=== PATIENT | female | born 1990 | race Caucasian/White ===

== ENCOUNTER 2016-10-29 07:22 | Emergency (ER) | payer BC ==
[2016-10-29] MEDS ORDERED: PREDNISONE 20 MG TABLET PO ONE (08:25)
[2016-10-29] MEDS ORDERED: ALBUTEROL SULFATE HFA (90 MCG/PUFF) 8 GM MDI (1 MDI/ER DISP) IH PRN (08:25)
--- NOTE | 2016-10-29 08:30 | ER Document Report ---
ED General - General Chief Complaint: Cough Stated Complaint: CHEST PAIN Mode of Arrival: Ambulatory Information source: Patient Notes: 26-year-old smoker presents with complaints of productive cough shortness breath of 3-4 day duration. Patient has not received influenza vaccine this year. Admits to wheezing TRAVEL OUTSIDE OF THE [place] IN LAST 30 DAYS: No - HPI Onset: Last week Onset/Duration: Persistent Quality of pain: No pain Severity: Mild Associated symptoms: Productive cough, Shortness of breath Exacerbated by: Walking Relieved by: Denies Similar symptoms previously: No Recently seen / treated by doctor: No - Related Data Allergies/Adverse Reactions: No Known Allergies Allergy (Verified 10/29/16 07:27) Past Medical History - Social History Smoking Status: Current Every Day Smoker Cigarette use (# per day): Yes Chew tobacco use (# tins/day): No Smoking Education Provided: Yes - Patient counselled regarding cessation for 4 minutes Frequency of alcohol use: None Drug Abuse: None Family History: Reviewed & Not Pertinent Patient has suicidal ideation: No Patient has homicidal ideation: No Neurological Medical History: Reports: Hx Migraine Renal/ Medical History: Denies: Hx Peritoneal Dialysis Past Surgical History: Reports: Hx Abdominal Surgery - Laparoscopy for an adnexal mass found to be only the fallopian tube - Immunizations Hx Diphtheria, Pertussis, Tetanus Vaccination: Yes Review of Systems - Review of Systems Notes: REVIEW OF SYSTEMS: CONSTITUTIONAL : Denies fever, chills, or sweats. Denies recent illness. EENT: Denies eye, ear, throat, or mouth pain or symptoms. Denies nasal or sinus congestion or discharge. Denies throat, tongue, or mouth swelling or difficulty swallowing. CARDIOVASCULAR: Denies chest pain. Denies palpitations or racing or irregular heart beat. Denies ankle edema. RESPIRATORY: Denies cough, cold, or chest congestion. Denies shortness of breath, difficulty breathing, or wheezing. GASTROINTESTINAL: Denies abdominal pain or distention. Denies nausea, vomiting , or diarrhea. Denies blood in vomitus, stools, or per rectum. Denies black, tarry stools. Denies constipation. GENITOURINARY: Denies difficulty urinating, painful urination, burning, frequency, blood in urine, or discharge. FEMALE GENITOURINARY: Denies vaginal bleeding, heavy or abnormal periods, irregular periods. Denies vaginal discharge or odor. MUSCULOSKELETAL: Denies back or neck pain or stiffness. Denies joint pain or swelling. SKIN: Denies rash, lesions or sores. HEMATOLOGIC : Denies easy bruising or bleeding. LYMPHATIC: Denies swollen, enlarged glands. NEUROLOGICAL: Denies confusion or altered mental status. Denies passing out or loss of consciousness. Denies dizziness or lightheadedness. Denies headache. Denies weakness or paralysis or loss of use of either side. Denies problems with gait or speech. Denies sensory loss, numbness, or tingling. Denies seizures. PSYCHIATRIC: Denies anxiety or stress. Denies depression, suicidal ideation, or homicidal ideation. ALL OTHER SYSTEMS REVIEWED AND NEGATIVE. Dictation was performed using [employer] voice recognition software PHYSICAL EXAMINATION: GENERAL: Well-appearing, well-nourished and in no acute distress. Smells of cigarette smoke HEAD: Atraumatic, normocephalic. EYES: Pupils equal round and reactive to light, extraocular movements intact, conjunctiva are normal. ENT: Nares patent, oropharynx clear without exudates. Moist mucous membranes. NECK: Normal range of motion, supple without lymphadenopathy LUNGS: decreased breath sounds all throughout HEART: Regular rate and rhythm without murmurs ABDOMEN: Soft, nontender, nondistended abdomen. No guarding, no rebound. No masses appreciated. Female : deferred Musculoskeletal: Normal range of motion, no pitting or edema. No cyanosis. NEUROLOGICAL: Cranial nerves grossly intact. Normal speech, normal gait. Normal sensory, motor exams PSYCH: Normal mood, normal affect. SKIN: Warm, Dry, normal turgor, no rashes or lesions noted. Physical Exam - Vital signs Vitals: Temp Pulse Resp BP Pulse Ox 98.0 F 108 H 20 130/93 H 98 10/29/16 07:26 10/29/16 07:26 10/29/16 07:26 10/29/16 07:26 10/29/16 07:26 Course - Re-evaluation Re-evalutation: 10/29/16 08:30 X-ray pending, influenza was negative. Patient will be started on inhaler and steroids 10/29/16 08:53 Influenza and chest x-ray both negative. Patient will be discharged home with supportive treatment times otherwise stable Smoking cessation provided After performing a Medical Screening Examination, I estimate there is LOW risk for ACUTE CORONARY SYNDROME, RESPIRATORY FAILURE, SEPSIS OR MENINGITIS, thus I consider the discharge disposition reasonable. The patient and I have discussed the diagnosis and risks, and we agree with discharging home with close follow- up. We also discussed returning to the Emergency Department immediately if new or worsening symptoms occur. We have discussed the symptoms which are most concerning (e.g., changing or worsening pain, trouble swallowing or breathing, neck stiffness, fever) that necessitate immediate return. - Vital Signs Vital signs: Temp Pulse Resp BP Pulse Ox 98.0 F 108 H 20 130/93 H 98 10/29/16 07:26 10/29/16 07:26 10/29/16 07:26 10/29/16 07:26 10/29/16 07:26 - Diagnostic Test Radiology reviewed: Image reviewed, Reports reviewed Discharge - Discharge Clinical Impression: Encounter for smoking cessation counseling, Bronchitis Condition: Stable Disposition: HOME, SELF-CARE Instructions: Bronchitis With Bronchospasm (Wheezing) ([facility]) Additional Instructions: Follow up with your physician tomorrow for further care or return to the ED IMMEDIATELY if symptoms worsen or new concerns occur Prescriptions: Prednisone [Deltasone 20 mg Tablet] 3 tab PO DAILY 5 Days
[2016-10-29 09:20] VITALS: BP 132/78
== END 2016-10-29 09:16 | disposition home or self-care (01) ==
LOC: ER 07:22
DX: J40 Bronchitis, not specified as acute or chronic (principal); R05 Cough; R07.9 Chest pain, unspecified; R06.02 Shortness of breath; F17.210 Nicotine dependence, cigarettes, uncomplicated
CPT/HCPCS: 99406; 99283; 87804; 71020; J7512; J3490

== ENCOUNTER 2017-03-07 01:07 | Emergency (ER) | payer BC ==
[2017-03-07 01:15] VITALS: BP 128/80
== END 2017-03-07 03:00 | disposition left against medical advice (07) ==
LOC: ER 01:07
DX: Z53.21 Procedure and treatment not carried out due to patient leaving prior to being seen by health care provider (principal)

== ENCOUNTER 2017-11-13 16:25 | Emergency (ER) | payer SELFPAY ==
--- NOTE | 2017-11-13 17:28 | ER Document Report ---
ED General - General Chief Complaint: Skin Problem Stated Complaint: ABSCESS/UNDERNEATH BREASTS Time Seen by Provider: 11/13/17 17:19 Mode of Arrival: Ambulatory Information source: Patient Notes: 27-year-old female presents to ED for complaint of bumps underneath her breast times about 4 months off and on sometimes they get big sometimes a small. She states sometimes a draining dark yellow fluids with an odor. She states she also may be her last menstrual period was October 07-. She states she has a little bit of pelvic pain but nothing really significant but denies any vaginal bleeding or discharge. TRAVEL OUTSIDE OF THE [place] IN LAST 30 DAYS: No - HPI Onset: Other - 4 months Onset/Duration: Intermittent Quality of pain: Sharp Severity: Moderate Pain Level: 3 Associated symptoms: Other - Bumps to both breast, mild pelvic pain, Exacerbated by: Movement Relieved by: Denies Similar symptoms previously: Yes Recently seen / treated by doctor: No - Related Data Allergies/Adverse Reactions: No Known Allergies Allergy (Verified 11/13/17 16:26) Past Medical History - General Information source: Patient - Social History Smoking Status: Current Every Day Smoker Cigarette use (# per day): Yes Chew tobacco use (# tins/day): No Smoking Education Provided: Yes - 4 minutes Frequency of alcohol use: None Drug Abuse: None Occupation: None Lives with: Family Family History: Arthritis, Hyperlipidemia. denies: CAD, COPD, CVA, DM, Hypertension, Malignancy, Thyroid Disfunction Patient has suicidal ideation: No Patient has homicidal ideation: No - Past Medical History Cardiac Medical History: Reports: None Pulmonary Medical History: Reports: None EENT Medical History: Reports: None Neurological Medical History: Reports: Hx Migraine Endocrine Medical History: Reports: None Renal/ Medical History: Reports: Hx Ovarian Cysts Malignancy Medical History: Reports: None GI Medical History: Reports: None Musculoskeltal Medical History: Reports None Skin Medical History: Reports Hx Cellulitis Psychiatric Medical History: Reports: None Traumatic Medical History: Reports: None Infectious Medical History: Reports: None Past Surgical History: Reports: Hx Abdominal Surgery - Laparoscopy for an adnexal mass found to be only the fallopian tube, Hx Gynecologic Surgery - Ovarian cyst removed - Immunizations Immunizations up to date: Yes Hx Diphtheria, Pertussis, Tetanus Vaccination: Yes Review of Systems - Review of Systems Constitutional: No symptoms reported EENT: No symptoms reported Cardiovascular: No symptoms reported Respiratory: No symptoms reported Gastrointestinal: No symptoms reported Genitourinary: No symptoms reported Female Genitourinary: Other - States she is late for her cycle and she had a positive test that she is having a little bit of discomfort Musculoskeletal: No symptoms reported Skin: Other Hematologic/Lymphatic: No symptoms reported Neurological/Psychological: No symptoms reported -: Yes All other systems reviewed and negative Physical Exam - Vital signs Vitals: Temp Pulse Resp BP Pulse Ox 98.9 F 109 H 18 139/91 H 97 11/13/17 16:30 11/13/17 16:30 11/13/17 16:30 11/13/17 16:30 11/13/17 16:30 Interpretation: Normal - General General appearance: Appears well, Alert - HEENT Head: Normocephalic, Atraumatic Eyes: Normal Pupils: PERRL - Respiratory Respiratory status: No respiratory distress Chest status: Nontender Breath sounds: Normal Chest palpation: Normal - Cardiovascular Rhythm: Regular Heart sounds: Normal auscultation Murmur: No - Abdominal Inspection: Normal Distension: No distension Bowel sounds: Normal Tenderness: Nontender. No: Tender Organomegaly: No organomegaly - Back Back: Normal, Nontender - Extremities General upper extremity: Normal inspection, Nontender, Normal color, Normal ROM , Normal temperature General lower extremity: Normal inspection, Nontender, Normal color, Normal ROM , Normal temperature, Normal weight bearing. No: Immanuel's sign - Neurological Neuro grossly intact: Yes Cognition: Normal Orientation: AAOx4 Ceci Coma Scale Eye Opening: Spontaneous Ceci Coma Scale Verbal: Oriented Ceci Coma Scale Motor: Obeys Commands Ceci Coma Scale Total: 15 Speech: Normal Motor strength normal: LUE, RUE, LLE, RLE Sensory: Normal - Psychological Associated symptoms: Normal affect, Normal mood - Skin Skin Temperature: Warm Skin Moisture: Dry Skin Color: Normal Character of irregularity: Maculopapular - Very small no fluctuance underneath bilateral breast Irregularity with: Swelling, Tenderness, Warmth Course - Re-evaluation Re-evalutation: 11/13/17 21:28 Patient here for multiple very small abscesses to the bilateral breast. They look more like acne that has been scratched and inflamed. Patient was started on Keflex for the multiple small abscesses to the breast and for her urinary tract infection. Patient requested and received a test and she urine present test is positive. Patient was instructed to follow-up with OB /[facility]. Patient to follow-up with her primary doctor concerning her breast abscesses. - Vital Signs Vital signs: Temp Pulse Resp BP Pulse Ox 98.7 F 90 18 122/80 97 11/13/17 19:14 11/13/17 19:14 11/13/17 19:14 11/13/17 19:14 11/13/17 19:14 - Laboratory Laboratory results interpreted by me: 11/13/17 11/13/17 17:45 17:45 Urine Blood SMALL H Ur Leukocyte Esterase TRACE H Urine HCG, Qual POSITIVE H Discharge - Discharge Clinical Impression: Breast abscess of female UTI (urinary tract infection) Qualifiers: Urinary tract infection type: site unspecified Hematuria presence: without hematuria Qualified Code(s): N39.0 - Urinary tract infection, site not specified Condition: Stable Disposition: HOME, SELF-CARE Additional Instructions: URINARY TRACT INFECTION: Your evaluation indicates that you have a urinary tract infection. This is due to germs growing in the bladder. This is a common problem. This infection usually responds quickly to antibiotics. Your antibiotic should be taken exactly as prescribed. Drink plenty of fluids -- three to four quarts a day. Occasionally, a bladder anesthetic will be prescribed to help stop the feeling of urgency until the antibiotic has a chance to clear the infection. This may cause your urine to be dark orange. Certain urine infections require a culture. If the doctor obtained a culture, the results will be back in two days. You should call to see if a change in treatment is needed. A repeat urinalysis after you finish treatment is often recommended. The physician will let you know if further testing is required. Call the doctor if you develop fever, chills, flank pain, inability to urinate, or blood in the urine. Abscess You have an abscess (boil). This a pus-forming infection, usually due to staph. Some boils may be left to drain on their own, but most require lancing. From the time the tender lump first appears, it may be three or four days before the abscess is ready to prabhu. Local heat and rest help at this stage of treatment. An antibiotic may prevent spread of the infection. Once the abscess is opened, packing may be placed into it. This is done so pus is not sealed inside by premature closure of the cavity. The packing will be removed at your follow-up visit or you may be advised to remove it yourself at home. Sometimes this packing must be replaced a few times during healing. The wound will heal with surprisingly little scar. Depending on the size and location of an abscess, healing can take one to four weeks. You may shower and wash the area around the incision site two or three times a day. Antibiotics may be prescribed, but are usually not necessary after an abscess has been drained. If you develop fever, chilling, worsening pain, or increasing swelling in the area, call the doctor or return immediately. CEPHALEXIN: The antibiotic you've been prescribed is a member of the cephalosporin class. This type of antibiotic covers a wide variety of infections, including those of the skin, lungs, and urinary tract. It's useful for staph infections. This antibiotic is slightly similar to the penicillin family. In rare cases , a person who is allergic to penicillin will also be allergic to this medication. If you have had a severe allergic reaction to penicillin, and have not taken this antibiotic since that time, notify your doctor. Antibiotics which cover many germs ("broad spectrum" antibiotics) are more likely to cause diarrhea or "yeast" infections. Women prone to vaginal yeast problems may suffer an attack after taking this antibiotic. In infants, oral thrush (white spots "stuck" on the cheek) or yeast diaper rash may result. See your doctor if these problems occur. Call at once if you develop itching, hives , shortness of breath, or lightheadedness. Soap Cleansing Gently wash the wound daily using a mild soap (like Ivory, Phisoderm, Neutrogena). Use warm water, rubbing gently until all debris, ooze, and crusting have been washed from the wound. Allow to dry briefly (about 10 minutes) after cleaning. Repeat this cleansing at least three times a day for the first two days and then once or twice a day. Epsom Salt Soaks Soak the wound area in a container of warm epsom salt water. If you can't get the wound area into a bucket or cast, use a folded towel soaked in the epsom salt solution and apply to the area. Use clean hot tap water (about the temperature of a very warm bath), mixing in about one (1) teaspoon for every pint of water. Two gallon --> 16 teaspoons Epsom Salts One gallon --> 8 teaspoons Epsom Salts Two quarts --> 4 teaspoons Epsom Salts One quart --> 2 teaspoons Epsom Salts Soak the wound for about 20 minutes while gently moving it around in the water. Repeat this four (4) times a day. FOLLOW-UP CARE: If you have been referred to a physician for follow-up care, call the physician s office for an appointment as you were instructed or within the next two days. If you experience worsening or a significant change in your symptoms, notify the physician immediately or return to the Emergency Department at any time for re-evaluation. Prescriptions: Cephalexin Monohydrate [Keflex 500 mg Capsule] 500 mg PO Q6H 14 Days capsule Forms: Elevated Blood Pressure, Return to Work Referrals: [facility] [Provider Group] - Follow up as needed
[2017-11-13 18:12] LABS: APPEARANCE,URINE SLIGHTLY-CLOUDY; BILIRUBIN,URINE NEGATIVE (NEGATIVE); COLOR,URINE YELLOW; GLUCOSE, URINE NEGATIVE (NEGATIVE); KETONES,URINE NEGATIVE (NEGATIVE); LEUKOCYTE ESTERASE,URINE TRACE (NEGATIVE); NITRITE,URINE NEGATIVE (NEGATIVE); PROTEIN,URINE NEGATIVE (NEGATIVE); URINE SPECIFIC GRAVITY 1.024; UROBILINOGEN,URINE NEGATIVE mg/dL (<2.0)
[2017-11-13] MEDS ORDERED: CEPHALEXIN 500 MG CAPSULE PO ONE (19:00)
[2017-11-13 19:16] VITALS: BP 122/80
== END 2017-11-13 19:16 | disposition home or self-care (01) ==
LOC: ER 16:25
DX: O23.40 Unspecified infection of urinary tract in pregnancy, unspecified trimester (principal); O91.119 Abscess of breast associated with pregnancy, unspecified trimester; O26.899 Other specified pregnancy related conditions, unspecified trimester; R10.2 Pelvic and perineal pain; F17.210 Nicotine dependence, cigarettes, uncomplicated
CPT/HCPCS: 81001; 81025; 99283

== ENCOUNTER 2017-11-23 19:55 | Emergency (ER) | payer SELFPAY ==
--- NOTE | 2017-11-23 20:37 | ER Document Report ---
ED Medical Screen (RME) - General Chief Complaint: Vag Bleeding, +preg <12wks Stated Complaint: CRAMPING/VAGINAL BLEEDING Time Seen by Provider: 11/23/17 20:23 Notes: Patient states that she is . Thinks maybe around 6 weeks. No OB care. Having vaginal bleeding and cramping. Also complaining of boils under her breasts. I have greeted and performed a rapid initial assessment of this patient. A comprehensive ED assessment and evaluation of the patient, analysis of test results and completion of the medical decision making process will be conducted by additional ED providers. TRAVEL OUTSIDE OF THE [place] IN LAST 30 DAYS: No - Related Data Allergies/Adverse Reactions: No Known Allergies Allergy (Verified 11/13/17 16:26) Past Medical History - Social History Chew tobacco use (# tins/day): No Frequency of alcohol use: None Drug Abuse: None Neurological Medical History: Reports: Hx Migraine Renal/ Medical History: Reports: Hx Ovarian Cysts. Denies: Hx Peritoneal Dialysis Skin Medical History: Reports Hx Cellulitis Past Surgical History: Reports: Hx Abdominal Surgery - Laparoscopy for an adnexal mass found to be only the fallopian tube, Hx Gynecologic Surgery - Ovarian cyst removed - Immunizations Immunizations up to date: Yes Hx Diphtheria, Pertussis, Tetanus Vaccination: Yes Physical Exam - Vital signs Vitals: Temp Pulse Resp BP Pulse Ox 98.7 F 106 H 19 131/79 H 99 11/23/17 20:26 11/23/17 20:26 11/23/17 20:26 11/23/17 20:26 11/23/17 20:26 Course - Vital Signs Vital signs: Temp Pulse Resp BP Pulse Ox 98.7 F 106 H 19 131/79 H 99 11/23/17 20:26 11/23/17 20:26 11/23/17 20:26 11/23/17 20:26 11/23/17 20:26
[2017-11-23 21:23] LABS: ABSOLUTE BASOPHILS # (AUTO) 0.1 10^3/uL (0.0-0.2); ABSOLUTE EOSINOPHILS # (AUTO) 0.1 10^3/uL (0.0-0.6); ABSOLUTE LYMPHOCYTES (AUTO) 2.7 10^3/uL (0.5-4.7); ABSOLUTE MONOCYTES (AUTO) 0.6 10^3/uL (0.1-1.4); ABSOLUTE NEUT (AUTO) 7.6 10^3/uL (1.7-8.2); BASOPHILS % (AUTO) 0.9 % (0-2); EOSINOPHILS % (AUTO) 1.3 % (0-6); HEMATOCRIT 39.5 % (36.0-47.0); HEMOGLOBIN 13.2 g/dL (12.0-15.5); LYMPHOCYTES % (AUTO) 23.9 % (13-45); MEAN CORPUSCULAR HEMOGLOBIN 28.1 pg (27.0-33.4); MEAN CORPUSCULAR HGB CONC 33.4 g/dL (32.0-36.0); MEAN CORPUSCULAR VOLUME 84 fl (80-97); MONOCYTES % (AUTO) 5.7 % (3-13); PLATELET COUNT 243 10^3/uL (150-450); RED BLOOD COUNT 4.69 10^6/uL (3.72-5.28); RED CELL DISTRIBUTION WIDTH 14.4 % (11.5-14.0); SEGMENTED NEUTROPHILS % (AUTO) 68.2 % (42-78); TOTAL CELLS COUNTED % (AUTO) 100 %; WHITE BLOOD COUNT 11.2 10^3/uL (4.0-10.5)
[2017-11-23 21:40] LABS: ALANINE AMINOTRANSFERASE 39 U/L (9-52); ALBUMIN 4.3 g/dL (3.5-5.0); ALKALINE PHOSPHATASE 77 U/L (38-126); ANION GAP 10 (5-19); ASPARTATE AMINO TRANSFERASE 18 U/L (14-36); BILIRUBIN,DIRECT 0.1 mg/dL (0.0-0.4); BILIRUBIN,TOTAL 0.2 mg/dL (0.2-1.3); BLOOD UREA NITROGEN 9 mg/dL (7-20); CALCIUM 10.2 mg/dL (8.4-10.2); CARBON DIOXIDE 27 mmol/L (22-30); CHLORIDE 102 mmol/L (98-107); GLUCOSE 83 mg/dL (75-110); POTASSIUM 4.1 mmol/L (3.6-5.0); SODIUM 139.2 mmol/L (137-145)
--- NOTE | 2017-11-23 21:40 | ER Document Report ---
ED General - General Chief Complaint: Vag Bleeding, +preg <12wks Stated Complaint: CRAMPING/VAGINAL BLEEDING Time Seen by Provider: 11/23/17 20:23 Mode of Arrival: Ambulatory Information source: Patient Notes: 27-year-old female presents with complaint of vaginal bleeding and lower abdominal pain. Patient states that she took a home test 2 weeks ago that was positive. She states that she has been experiencing vaginal bleeding for 2 days. She states yesterday she experienced heavy bleeding with some clots and today it has lessened. She is also complaining of multiple areas of erythema and fluctuance on her breasts bilaterally. She does have a history of staff and has had multiple breast abscesses in the past. She has not yet obtained care but is taking vitamins. She does have a history of miscarriage in the past. TRAVEL OUTSIDE OF THE [place] IN LAST 30 DAYS: No - HPI Onset: Yesterday Onset/Duration: Gradual Quality of pain: Cramping Severity: Mild Pain Level: 1 Associated symptoms: denies: Productive cough, Fever, Shortness of breath Exacerbated by: Denies Relieved by: Denies Similar symptoms previously: Yes - Previous miscarriage. Recently seen / treated by doctor: No - Related Data Allergies/Adverse Reactions: No Known Allergies Allergy (Verified 11/13/17 16:26) Past Medical History - Social History Smoking Status: Current Every Day Smoker Chew tobacco use (# tins/day): No Frequency of alcohol use: None Drug Abuse: None Family History: Arthritis, Hyperlipidemia. denies: CAD, COPD, CVA, DM, Hypertension, Malignancy, Thyroid Disfunction Patient has suicidal ideation: No Patient has homicidal ideation: No Neurological Medical History: Reports: Hx Migraine Renal/ Medical History: Reports: Hx Ovarian Cysts. Denies: Hx Peritoneal Dialysis Skin Medical History: Reports Hx Cellulitis Past Surgical History: Reports: Hx Abdominal Surgery - Laparoscopy for an adnexal mass found to be only the fallopian tube, Hx Gynecologic Surgery - Ovarian cyst removed - Immunizations Immunizations up to date: Yes Hx Diphtheria, Pertussis, Tetanus Vaccination: Yes Review of Systems - Review of Systems Constitutional: See HPI. denies: Fever, Weakness EENT: No symptoms reported Cardiovascular: No symptoms reported Respiratory: No symptoms reported Gastrointestinal: No symptoms reported Genitourinary: Other - Vaginal bleeding Female Genitourinary: , Vaginal bleeding. denies: Vaginal discharge Musculoskeletal: See HPI Hematologic/Lymphatic: Other - Multiple areas of erythema on her breasts bilaterally. Physical Exam - Vital signs Vitals: Temp Pulse Resp BP Pulse Ox 98.7 F 106 H 19 131/79 H 99 11/23/17 20:26 11/23/17 20:26 11/23/17 20:26 11/23/17 20:26 11/23/17 20:26 Interpretation: Normal, Hypertensive, Tachypneic. No: Febrile - General General appearance: Appears well, Alert In distress: None - HEENT Head: Normocephalic, Atraumatic Eyes: Normal Pupils: PERRL - Respiratory Respiratory status: No respiratory distress Chest status: Nontender Breath sounds: Normal Chest palpation: Normal - Cardiovascular Rhythm: Regular, Tachycardia Heart sounds: Normal auscultation Murmur: No Normal capillary refill: Yes - Genitourinary External exam: Normal. No: Lesions Speculum exam: Vaginal discharge Vaginal bleeding: None Bimanuel exam: Normal - Skin Skin Temperature: Warm Skin Moisture: Dry Skin Color: Normal Skin irregularity: Erythema - Multiple areas of erythema on the breasts bilaterally. No areas of induration or fluctuance. 1 currently draining wound on the right breast. Course - Re-evaluation Re-evalutation: Laboratory 11/23/17 11/23/17 11/23/17 21:10 21:10 21:10 WBC 11.2 H RBC 4.69 Hgb 13.2 Hct 39.5 MCV 84 MCH 28.1 MCHC 33.4 RDW 14.4 H Plt Count 243 Seg Neutrophils % 68.2 Lymphocytes % 23.9 Monocytes % 5.7 Eosinophils % 1.3 Basophils % 0.9 Absolute Neutrophils 7.6 Absolute Lymphocytes 2.7 Absolute Monocytes 0.6 Absolute Eosinophils 0.1 Absolute Basophils 0.1 Sodium 139.2 Potassium 4.1 Chloride 102 Carbon Dioxide 27 Anion Gap 10 BUN 9 Creatinine 0.72 Est GFR ( Amer) > 60 Est GFR (Non-Af Amer) > 60 Glucose 83 Calcium 10.2 Total Bilirubin 0.2 Direct Bilirubin 0.1 Neonat Total Bilirubin Not Reportable Neonat Direct Bilirubin Not Reportable Neonat Indirect Bili Not Reportable AST 18 ALT 39 Alkaline Phosphatase 77 Total Protein 7.0 Albumin 4.3 Beta HCG, Quant 36534.00 H Total Beta HCG POSITIVE Trichomonas (Wet Prep) Vaginal WBC Vaginal RBC Vaginal Yeast Chlamydia DNA (PCR) N.gonorrhoeae DNA (PCR) Blood Type A POSITIVE Rhogam Indicated RHOGAM NOT INDICATED 11/23/17 11/23/17 22:11 22:11 WBC RBC Hgb Hct MCV MCH MCHC RDW Plt Count Seg Neutrophils % Lymphocytes % Monocytes % Eosinophils % Basophils % Absolute Neutrophils Absolute Lymphocytes Absolute Monocytes Absolute Eosinophils Absolute Basophils Sodium Potassium Chloride Carbon Dioxide Anion Gap BUN Creatinine Est GFR ( Amer) Est GFR (Non-Af Amer) Glucose Calcium Total Bilirubin Direct Bilirubin Neonat Total Bilirubin Neonat Direct Bilirubin Neonat Indirect Bili AST ALT Alkaline Phosphatase Total Protein Albumin Beta HCG, Quant Total Beta HCG Trichomonas (Wet Prep) NO TRICHOMONAS SEEN Vaginal WBC 1+ WBCS SEEN Vaginal RBC NO RBCS SEEN Vaginal Yeast NO YEAST SEEN Chlamydia DNA (PCR) NOT DETECTED N.gonorrhoeae DNA (PCR) NOT DETECTED Blood Type Rhogam Indicated Obstetrics Ultrasound 11/23/17 20:36 IMPRESSION: Living intrauterine fetus measures 6w3d with LEONEL of 07/16/18; there is a 1.6 cm perigestational hemorrhage. 11/24/17 23:46 27-year-old female and 6 weeks per LMP and today's ultrasound presents with complaint of abdominal cramping and vaginal bleeding that started 2 days prior to arrival. Upon arrival vitals reviewed. Patient is mildly tachycardic but afebrile. She does not appear toxic or dehydrated. She is in no acute distress. Pelvic exam was performed and showed no vaginal bleeding and a close office. Transvaginal ultrasound showed a intrauterine with a heart rate of 153 in the associated subchorionic hemorrhage. Discussed findings with the patient and possibility of miscarriage. Patient was advised to return in 48 hours for repeat hCG. She is currently taking vitamins. Patient does also have multiple areas of erythema of both breasts with one area on the right breast which is currently open and draining. She does have a history of staph. Patient was given a prescription for Keflex. Indications to return were discussed with the patient which included return of vaginal bleeding, increased abdominal pain, passing of tissue. - Vital Signs Vital signs: Temp Pulse Resp BP Pulse Ox 98.7 F 86 20 117/69 98 11/23/17 23:58 11/23/17 23:58 11/23/17 23:58 11/23/17 23:58 11/23/17 23:58 - Laboratory Result Diagrams: 11/23/17 21:10 11/23/17 21:10 Laboratory results interpreted by me: 11/23/17 11/23/17 21:10 21:10 WBC 11.2 H RDW 14.4 H Beta HCG, Quant 70390.00 H Discharge - Discharge Clinical Impression: Vaginal bleeding during , Breast abscess Qualifiers: Weeks of gestation: less than 8 weeks Qualified Code(s): Z3A.01 - Less than 8 weeks gestation of Condition: Good Disposition: HOME, SELF-CARE Instructions: Abscess ([facility]), Bleeding During Early ([facility]), Cephalexin ([facility]), Vaginal Bleeding ([facility]) Prescriptions: Cephalexin Monohydrate [Keflex 500 mg Capsule] 500 mg PO BID 10 Days #20 capsule Forms: Follow-Up Laboratory Testing Referrals: KAL ANTHONY MD [ACTIVE STAFF] - Follow up in 1 week
[2017-11-23 22:33] LABS: RBCS (WET MOUNT) NO RBCS SEEN; T.VAGINALIS (WET MOUNT) NO TRICHOMONAS SEEN; WBCS (WET MOUNT) 1+ WBCS SEEN; YEAST (WET MOUNT) NO YEAST SEEN
--- NOTE | 2017-11-23 23:15 | RADIOLOGY REPORT (SQ) ---
EXAM DESCRIPTION: U/S OB TRANSVAGINAL W/O DOP CLINICAL HISTORY: 27 years, Female, +hcg, vag bleeding, pelvic cramp COMPARISON: None. TECHNIQUE: Transvaginal sonogram. LIMITATIONS: None. FINDINGS: Living intrauterine fetus measures 6w3d with LEONEL of 07/16/18, based on CRL of 0.6-cm. Subchorionic hemorrhage measures 1.6 x 1.5 x 0.6-cm. 4.2 cm right ovary, 3.7 cm left ovary, likely 2.2 cm left corpus luteum, 2.5 cm cervical length with closed appearance appear otherwise unremarkable. IMPRESSION: Living intrauterine fetus measures 6w3d with LEONEL of 07/16/18; there is a 1.6 cm perigestational hemorrhage.
[2017-11-23 23:58] LABS: CHLAM PCR NOT DETECTED (NOT DETECT); GON PCR NOT DETECTED (NOT DETECT)
[2017-11-24] VITALS: BP 117/69
== END 2017-11-24 00:01 | disposition home or self-care (01) ==
LOC: ER 19:55
DX: O20.8 Other hemorrhage in early pregnancy (principal); O91.111 Abscess of breast associated with pregnancy, first trimester; O26.891 Other specified pregnancy related conditions, first trimester; R10.30 Lower abdominal pain, unspecified; R00.0 Tachycardia, unspecified; O99.331 Smoking (tobacco) complicating pregnancy, first trimester; Z3A.01 Less than 8 weeks gestation of pregnancy; Z20.818 Contact with and (suspected) exposure to other bacterial communicable diseases; Z87.59 Personal history of other complications of pregnancy, childbirth and the puerperium
CPT/HCPCS: 36415; 76817; 80053; 84702; 85025; 86900; 86901; 87210; 87491; 87591; 99284

== ENCOUNTER 2017-11-25 19:50 | Emergency (ER) | payer SELFPAY ==
[2017-11-25 19:54] VITALS: BP 138/86
--- NOTE | 2017-11-25 20:13 | ER Document Report ---
HPI - HPI Pain Level: 0 Notes: Patient is a 27-year-old female who is approximately 6 weeks who presents to the ED to repeat an hCG from her visit 2 days ago. Patient states that she does not have any more cramping or vaginal bleeding and has been feeling well since then. Patient states that she is eating and drinking without difficulties. She is urinating normally and having normal bowel movements. No other concerns or complaints at this time. Denies any headache, fever, URI, sore throat, chest pain, palpitations, syncope, cough, shortness of breath, wheeze, dyspnea, abdominal pain, nausea/vomiting/diarrhea, urinary retention, dysuria, hematuria, vaginal bleeding/odor/discharge, or rash. Patient has an appointment with her PCM on Monday. - ROS Systems Reviewed and Negative: Yes All other systems reviewed and negative - REPRODUCTIVE Reproductive: REPORTS: : Past Medical History - Social History Smoking Status: Current Every Day Smoker Chew tobacco use (# tins/day): No Frequency of alcohol use: None Drug Abuse: None Family History: Arthritis, Hyperlipidemia. denies: CAD, COPD, CVA, DM, Hypertension, Malignancy, Thyroid Disfunction Patient has suicidal ideation: No Patient has homicidal ideation: No Neurological Medical History: Reports: Hx Migraine Renal/ Medical History: Reports: Hx Ovarian Cysts. Denies: Hx Peritoneal Dialysis Skin Medical History: Reports Hx Cellulitis Past Surgical History: Reports: Hx Abdominal Surgery - Laparoscopy for an adnexal mass found to be only the fallopian tube, Hx Gynecologic Surgery - Ovarian cyst removed - Immunizations Immunizations up to date: Yes Hx Diphtheria, Pertussis, Tetanus Vaccination: Yes Vertical Provider Document - CONSTITUTIONAL Agree With Documented VS: Yes Notes: PHYSICAL EXAMINATION: GENERAL: Well-appearing, well-nourished and in no acute distress. LUNGS: Breath sounds clear to auscultation bilaterally and equal. No wheezes rales or rhonchi. HEART: Regular rate and rhythm without murmurs, rubs, gallops. ABDOMEN: Soft, nontender, nondistended abdomen. No guarding, no rebound. No masses appreciated. Normal bowel sounds present. No CVA tenderness bilaterally. : deferred, pt had one performed 2 days ago. PSYCH: Normal mood, normal affect. SKIN: Warm, Dry, normal turgor, no rashes or lesions noted. - INFECTION CONTROL TRAVEL OUTSIDE OF THE [place] IN LAST 30 DAYS: No Course - Re-evaluation Re-evalutation: 11/25/17 21:34 Patient is an afebrile, well-hydrated, 27-year-old female who presents to the ED for recheck of her hCG level. Vitals are acceptable. PE is otherwise unremarkable. Her hCG did increase from 23,300 approximately to 28,750. heart tones were too difficult to obtain at this time, most likely due to early gestation. Pt currently asymptomatic. Advised patient that she needs to follow-up with [facility] at this point and schedule an appointment. Keep appointment with your PCM on Monday for recheck. Low suspicion for any other systemic emergent condition at this time. Return to the ED with any worsening/ concerning symptoms otherwise as reviewed discharge. Patient is in agreement. - Vital Signs Vital signs: Temp Pulse Resp BP Pulse Ox 98.4 F 120 H 20 138/86 H 96 11/25/17 19:53 11/25/17 19:53 11/25/17 19:53 11/25/17 19:53 11/25/17 19:53 Discharge - Discharge Clinical Impression: Follow up Qualifiers: Weeks of gestation: less than 8 weeks Qualified Code(s): Z3A.01 - Less than 8 weeks gestation of Condition: Stable Disposition: HOME, SELF-CARE Additional Instructions: Maintain fluid intake Proper hygenic technique Keep the skin clean Tylenol/ibuprofen as needed F/u with your PCM as scheduled Monday for a recheck Schedule an appointment with OBGYN as well. Return to the ED with any development of TORIBIO/fever, trouble with vision, eye redness, worsening pain, urethral discharge, urinary retention, blood in the urine, flank pain, abdominal pain, n/v, Chest Pain, shortness of breath, joint pains, trouble breathing, or any other worsening/concerning symptoms as needed otherwise. Referrals: [facility] [Provider Group] - Follow up as needed [facility] [Provider Group] - 11/27/17
== END 2017-11-25 21:49 | disposition home or self-care (01) ==
LOC: ER 19:50
DX: Z34.01 Encounter for supervision of normal first pregnancy, first trimester (principal); Z3A.01 Less than 8 weeks gestation of pregnancy
CPT/HCPCS: 36415; 84702; 99281

== ENCOUNTER 2018-02-09 23:01 | Emergency (ER) | payer SELFPAY ==
--- NOTE | 2018-02-10 01:51 | ER Document Report ---
ED General - General Chief Complaint: OB Problem (<20wks) Stated Complaint: VAGINAL PAIN Time Seen by Provider: 02/10/18 01:04 Notes: The patient is a 27-year-old at 18 weeks by ultrasound who presents with concerns that she lost part of her mucous plug shortly prior to arrival. The patient reports a jellylike substance pass from her vagina and it looks very similar to when she passed her mucous plug with her previous . She also noted some mild, intermittent lower abdominal cramping since that time which has now since resolved. Nothing improves or worsens that pain when present. She denies any vaginal bleeding. She continues to feel active movement. No history of similar symptoms during this or any previous . She has not contacted her END WORKER regarding today's concerns. She states that she wanted to be sure that the baby was okay so she came to the emergency department. TRAVEL OUTSIDE OF THE [place] IN LAST 30 DAYS: No - Related Data Allergies/Adverse Reactions: No Known Allergies Allergy (Verified 11/13/17 16:26) Past Medical History - General Information source: Patient - Social History Smoking Status: Current Some Day Smoker Chew tobacco use (# tins/day): No Frequency of alcohol use: None Drug Abuse: None Lives with: Spouse/Significant other Family History: Arthritis, Hyperlipidemia. denies: CAD, COPD, CVA, DM, Hypertension, Malignancy, Thyroid Disfunction Patient has suicidal ideation: No Patient has homicidal ideation: No Neurological Medical History: Reports: Hx Migraine Renal/ Medical History: Reports: Hx Ovarian Cysts. Denies: Hx Peritoneal Dialysis Skin Medical History: Reports Hx Cellulitis Past Surgical History: Reports: Hx Abdominal Surgery - Laparoscopy for an adnexal mass found to be only the fallopian tube, Hx Gynecologic Surgery - Ovarian cyst removed - Immunizations Immunizations up to date: Yes Hx Diphtheria, Pertussis, Tetanus Vaccination: Yes Review of Systems - Review of Systems Notes: Constitutional: Negative for fever. HENT: Negative for sore throat. Eyes: Negative for visual changes. Cardiovascular: Negative for chest pain. Respiratory: Negative for shortness of breath. Gastrointestinal: Positive for abdominal cramping now resolved Genitourinary: Negative for dysuria. Musculoskeletal: Negative for back pain. Skin: Negative for rash. Neurological: Negative for headaches, weakness or numbness. 10 point ROS negative except as marked above and in HPI. Physical Exam - Vital signs Vitals: Temp Pulse Resp BP Pulse Ox 98.4 F 93 18 130/81 H 98 02/09/18 23:40 02/09/18 23:40 02/09/18 23:40 02/09/18 23:40 02/09/18 23:40 Interpretation: Normal Notes: PHYSICAL EXAMINATION: GENERAL: Well-appearing, well-nourished and in no acute distress. HEAD: Atraumatic, normocephalic. EYES: Pupils equal round and reactive to light, extraocular movements intact, sclera anicteric, conjunctiva are normal. ENT: nares patent, oropharynx clear without exudates. Moist mucous membranes. NECK: Normal range of motion, supple without lymphadenopathy LUNGS: Breath sounds clear to auscultation bilaterally and equal. No wheezes rales or rhonchi. HEART: Regular rate and rhythm without murmurs ABDOMEN: Soft, nontender, normoactive bowel sounds. No guarding, no rebound. No masses appreciated. EXTREMITIES: Normal range of motion, no pitting or edema. No cyanosis. NEUROLOGICAL: No focal neurological deficits. Moves all extremities spontaneously and on command. PSYCH: Normal mood, normal affect. SKIN: Warm, Dry, normal turgor, no rashes or lesions noted. Course - Re-evaluation Re-evalutation: 02/10/18 01:49 Patient presents with concerns of loss of part of her mucous plug at 18 weeks gestation. She has no focal abdominal tenderness on examination. No vaginal bleeding or discharge. Bedside transabdominal ultrasound shows a viable intrauterine , active movement, heart rate 140 bpm. Patient has no additional symptoms or concerns. I have encouraged her to follow-up closely with END WORKER. No indication for labs or further imaging at this time point. At this time will discharge with return precautions and follow-up recommendations. Verbal discharge instructions given a the bedside and opportunity for questions given. Patient is in agreement with this plan and has verbalized understanding of return precautions and the need for OB follow-up in the next 24 -72 hours. - Vital Signs Vital signs: Temp Pulse Resp BP Pulse Ox 98.5 F 92 16 118/74 96 02/10/18 02:23 02/10/18 02:23 02/10/18 02:23 02/10/18 02:23 02/10/18 02:23 Discharge - Discharge Clinical Impression: Concern about complication without diagnosis Abdominal pain during Qualifiers: Trimester: second trimester Qualified Code(s): O26.892 - Other specified related conditions, second trimester Condition: Good Disposition: HOME, SELF-CARE Additional Instructions: Your ultrasound today shows a living intrauterine . Please follow closely with your primary care END WORKER. Please return if you develop severe abdominal pain, bleeding that goes through more than 2 pads for more than 2 hours, pass out, or have any other symptoms that are concerning to you. Please follow-up closely with your OBGYN regarding todays visit.
[2018-02-10 02:24] VITALS: BP 118/74
== END 2018-02-10 02:23 | disposition home or self-care (01) ==
LOC: ER 23:01
DX: O26.892 Other specified pregnancy related conditions, second trimester (principal); R10.30 Lower abdominal pain, unspecified; N89.8 Other specified noninflammatory disorders of vagina; O99.332 Smoking (tobacco) complicating pregnancy, second trimester; Z3A.18 18 weeks gestation of pregnancy
CPT/HCPCS: 99283

== ENCOUNTER → 2018-02-13 | Outpatient (CLI) | payer SELFPAY ==
--- NOTE | 2018-02-13 16:41 | RADIOLOGY REPORT (SQ) ---
EXAM DESCRIPTION: U/S OB 14+ TRNABD 1GES W/O DOP COMPLETED DATE/TIME: 02/13/2018 2:30 pm REASON FOR STUDY: ENCTR FOR SUPERVISION OF OTHER NORMAL , 2ND TRIMESTER (Z34.82) Z34.82 EN COUNTER FOR SUPRVSN OF NORMAL , SECOND TRI COMPARISON: 11/23/2017 TECHNIQUE: Static and Dynamic grayscale imaging performed of gravid uterus using transabdominal appr oach. Additional selected color Doppler and spectral images recorded. All stored on PACS. LIMITATIONS: None. FINDINGS: EGA: 19 weeks 3 days LEONEL: 07/07/2018 EFW: 300+/- 44 grams PERCENTILE: Not applicable. Fetus less than or equal to 20 weeks gestation. ANA LAURA: Adequate amount. PLACENTA: Posterior and fundal GRADE: I PRESENTATION: Variable ANATOMY: HEART RATE: 155 beats per minute. FOUR CHAMBER HEART: Visualized. THREE VESSEL CORD: Yes. CORD INSERTION: Visualized. KIDNEYS AND BLADDER: Visualized. Appear normal. STOMACH: Visualized. Appears normal. SPINE: Normal as visualized. BRAIN AND LATERAL VENTRICLES: Visualized. Appear normal. OTHER: No other significant finding. MATERNAL ADNEXA: Maternal ovaries not visualized. CERVICAL LENGTH: 3 cm. Closed. OTHER: No other significant finding. IMPRESSION: LIVING INTRAUTERINE . ESTIMATED GESTATIONAL AGE 19 weeks 3 days NO VISUALIZED ANOMALIES. Trimester of : Second trimester - 13 weeks 1 day to 27 weeks 6 days. TECHNICAL DOCUMENTATION: JOB ID: [id number] [employer]- All Rights Reserved Reading location - IP/workstation name: [email or web address]
== END ==
LOC: RAD 13:13
PROVIDERS: ATTEND Nurse Practitioner Women's Health
DX: Z34.82 Encounter for supervision of other normal pregnancy, second trimester (principal)
CPT/HCPCS: 76805

== ENCOUNTER 2018-04-16 13:41 | Outpatient (CLI) | payer SELFPAY ==
[2018-04-16 14:52] LABS: APPEARANCE,URINE CLOUDY; BILIRUBIN,URINE NEGATIVE (NEGATIVE); COLOR,URINE YELLOW; GLUCOSE, URINE NEGATIVE (NEGATIVE); KETONES,URINE TRACE mg/dL (NEGATIVE); LEUKOCYTE ESTERASE,URINE TRACE (NEGATIVE); NITRITE,URINE NEGATIVE (NEGATIVE); PROTEIN,URINE 30 mg/dL (NEGATIVE); URINE SPECIFIC GRAVITY 1.028
[2018-04-16 18:32] LABS: URINE AMPHETAMINES SCREEN NEGATIVE; URINE BARBITURATES SCREEN NEGATIVE; URINE BENZODIAZEPINES SCREEN NEGATIVE; URINE COCAINE SCREEN NEGATIVE; URINE MARIJUANA (THC) SCREEN NEGATIVE; URINE METHADONE SCREEN NEGATIVE; URINE PHENCYCLIDINE SCREEN NEGATIVE
== END 2018-04-16 15:30 | disposition home or self-care (01) ==
LOC: LC 13:41
PROVIDERS: ATTEND Obstetrics & Gynecology Gynecology
DX: O47.02 False labor before 37 completed weeks of gestation, second trimester (principal); O26.892 Other specified pregnancy related conditions, second trimester; E86.0 Dehydration; M54.9 Dorsalgia, unspecified; Z3A.27 27 weeks gestation of pregnancy
CPT/HCPCS: 80307; 81005

== ENCOUNTER 2018-06-16 23:33 | Emergency (ER) | payer MEDICAID ==
[2018-06-16 23:50] VITALS: BP 125/76
--- NOTE | 2018-06-17 00:20 | ER Document Report ---
ED General - General Chief Complaint: Fall Stated Complaint: FALL Time Seen by Provider: 06/17/18 00:09 Mode of Arrival: Ambulatory Information source: Patient TRAVEL OUTSIDE OF THE [place] IN LAST 30 DAYS: No - HPI Patient complains to provider of: Low back pain after fall, pelvic cramping Onset: This evening Onset/Duration: Intermittent Quality of pain: Achy, Cramping Severity: Moderate Pain Level: 3 Associated symptoms: None Exacerbated by: Movement Relieved by: Denies Similar symptoms previously: No Recently seen / treated by doctor: Yes Notes: Patient is a 27-year-old female who is approximately 36 weeks by dates , presenting to the emergency room after slip and fall on wet floor, causing pain to her tailbone and low back, she is currently having pelvic pain which she describes as "[place]", she denies any dysuria or hematuria, no vaginal bleeding or discharge, no fluid leakage - Related Data Allergies/Adverse Reactions: No Known Allergies Allergy (Verified 06/17/18 00:36) Past Medical History - General Information source: Patient - Social History Smoking Status: Unknown if Ever Smoked Family History: Arthritis, Hyperlipidemia. denies: CAD, COPD, CVA, DM, Hypertension, Malignancy, Thyroid Disfunction Neurological Medical History: Reports: Hx Migraine Renal/ Medical History: Reports: Hx Ovarian Cysts. Denies: Hx Peritoneal Dialysis Skin Medical History: Reports Hx Cellulitis Past Surgical History: Reports: Hx Abdominal Surgery - Laparoscopy for an adnexal mass found to be only the fallopian tube, Hx Gynecologic Surgery - Ovarian cyst removed - Immunizations Immunizations up to date: Yes Hx Diphtheria, Pertussis, Tetanus Vaccination: Yes Review of Systems - Review of Systems Constitutional: No symptoms reported EENT: No symptoms reported Cardiovascular: No symptoms reported Respiratory: No symptoms reported Gastrointestinal: No symptoms reported Genitourinary: No symptoms reported Female Genitourinary: See HPI Musculoskeletal: See HPI Skin: No symptoms reported Hematologic/Lymphatic: No symptoms reported Neurological/Psychological: No symptoms reported -: Yes All other systems reviewed and negative Physical Exam - Vital signs Vitals: Temp Pulse BP Pulse Ox 98.5 F 112 H 125/76 98 06/16/18 23:48 06/16/18 23:48 06/16/18 23:48 06/16/18 23:48 - Notes Notes: - General General appearance: Appears well, Alert In distress: None - HEENT Head: Normocephalic, Atraumatic Eyes: Normal Conjunctiva: Normal Extraocular movements intact: Yes Eyelashes: Normal Pupils: PERRL - Respiratory Respiratory status: No respiratory distress - Cardiovascular Rhythm: Regular - Abdominal Inspection: Gravid abdomen - Back Back: Tenderness to palpate in the lower lumbar paraspinal musculature and over the tailbone, no bony deformity palpated - Extremities General upper extremity: Normal inspection General lower extremity: Normal inspection - Neurological Neuro grossly intact: Yes Orientation: AAOx4 Arnett Coma Scale Eye Opening: Spontaneous Arnett Coma Scale Verbal: Oriented Arnett Coma Scale Motor: Obeys Commands Arnett Coma Scale Total: 15 - Psychological Associated symptoms: Normal affect, Normal mood - Skin Skin Temperature: Warm Skin Moisture: Dry Skin Color: Normal Course - Re-evaluation Re-evalutation: 06/17/18 00:50 Patient was likely coccyx contusion secondary to slip and fall, however with more concerning is she is 36 weeks and having contractions that she describes as "[place]", therefore labor and delivery was contacted and patient will be discharged for a labor check, she was advised to take Tylenol as needed for pain, follow-up with primary care and PRINTING ASSISTANT, return if symptoms worsen, patient acknowledges understanding and agreement with this plan - Vital Signs Vital signs: Temp Pulse Resp BP Pulse Ox 98.5 F 112 H 125/76 98 06/16/18 23:48 06/16/18 23:48 06/16/18 23:48 06/16/18 23:48 Discharge - Discharge Clinical Impression: Pelvic pain Low back pain Qualifiers: Chronicity: acute Back pain laterality: bilateral Sciatica presence: without sciatica Qualified Code(s): M54.5 - Low back pain Condition: Stable Disposition: LABOR CHECK Instructions: Low Back Pain ([facility]), Pelvic Pain in ([facility]) Additional Instructions: Report to labor and delivery for labor check. Return to the emergency room immediately if any of the concerns. Referrals: MADONNA CROWLEY MD [Primary Care Provider] - Follow up as needed
== END 2018-06-17 00:47 | disposition admitted as inpatient to this hospital (09) ==
LOC: ER 23:33
DX: O26.93 Pregnancy related conditions, unspecified, third trimester (principal); M54.5 Low back pain; R10.2 Pelvic and perineal pain; Z3A.36 36 weeks gestation of pregnancy
CPT/HCPCS: 99283

== ENCOUNTER 2018-06-17 00:25 | Outpatient (CLI) | payer MEDICAID ==
[2018-06-17 01:00] LABS: APPEARANCE,URINE CLOUDY; BILIRUBIN,URINE NEGATIVE (NEGATIVE); COLOR,URINE YELLOW; GLUCOSE, URINE 150 mg/dL (NEGATIVE); KETONES,URINE NEGATIVE (NEGATIVE); LEUKOCYTE ESTERASE,URINE NEGATIVE (NEGATIVE); NITRITE,URINE NEGATIVE (NEGATIVE); PROTEIN,URINE 100 mg/dL (NEGATIVE); URINE SPECIFIC GRAVITY 1.036
[2018-06-17] MEDS ORDERED: ACETAMINOPHEN 325 MG TABLET ONE (01:00)
[2018-06-17] MEDS ORDERED: ACETAMINOPHEN 325 MG TABLET PO ONE (01:10)
[2018-06-17 01:11] LABS: URINE AMPHETAMINES SCREEN NEGATIVE; URINE BARBITURATES SCREEN NEGATIVE; URINE BENZODIAZEPINES SCREEN NEGATIVE; URINE COCAINE SCREEN NEGATIVE; URINE MARIJUANA (THC) SCREEN NEGATIVE; URINE METHADONE SCREEN NEGATIVE; URINE PHENCYCLIDINE SCREEN NEGATIVE
--- NOTE | 2018-06-17 01:45 | RADIOLOGY REPORT (SQ) ---
CLINICAL HISTORY: fall - rule out abruption/placental status COMPARISON: None. TECHNIQUE: US LIMITED on 06/17/2018 12:00 AM CDT FINDINGS: Cervix is not clearly seen. There is a single live intrauterine gestation measuring 38 weeks one day by ultrasound. ANA LAURA is 19.3 cm. heart rate is 153. Placenta is fundal and is unremarkable. Biparietal diameter is 9.4 cm corresponding to 38 weeks two days. Head circumference is 33.7 cm corresponding to 38 weeks four days. Femoral circumference is 34.72 cm corresponding to 30 weeks four days. Femur length is 7.2 cm corresponding to 36 weeks six days. Estimated weight is 3423 g. IMPRESSION: Unremarkable appearance of the placenta.
--- NOTE | 2018-06-17 02:25 | Non Stress Test Report ---
Non Stress Test Datetime Report Generated by CPN: 06/17/2018 02:25 DEMOGRAPHIC EGA NST: 36.1 INDICATION Indication for Study: Ordered by Provider Indication for Study (NST) Other: LC URINE RESULTS Urine Protein, NST: Positive Urine Ketones - NST: Negative Urine Glucose - NST: Positive Urine Blood - NST: Negative MONITORING Monitor Explained: Monitor Explained; Test Explained; Patient Verbalized Understanding Time on Monitor: 06/17/2018 00:42 Time off Monitor: 06/17/2018 02:15 NST Duration: 93 NST INTERVENTIONS NST Interventions: PO Hydration Physician Notified NST: Nanda BABY A: [id number] BABY A Movement : Present Contraction Frequency : x1 FHR Baseline : 125 Accelerations : Prolonged Decelerations : None Variability : Moderate 6-25bpm NST Review: Meets Criteria for Reactive NST NST Review and Verified By : Annie Dial RN NST Results: Reactive NST REPORT Report Trigger: Send Report
== END 2018-06-17 02:23 | disposition home or self-care (01) ==
LOC: LC 00:25
PROVIDERS: ATTEND Obstetrics & Gynecology
PROC: 4A1HXCZ Monitoring of Products of Conception, Cardiac Rate, External Approach (ICD-10-PCS; principal; 2018-06-17)
DX: O47.03 False labor before 37 completed weeks of gestation, third trimester (principal); O36.8330 Maternal care for abnormalities of the fetal heart rate or rhythm, third trimester, not applicable or unspecified; O99.283 Endocrine, nutritional and metabolic diseases complicating pregnancy, third trimester; E86.0 Dehydration; Z3A.36 36 weeks gestation of pregnancy
CPT/HCPCS: 59025; 81001; 80307; 76815; J3490

== ENCOUNTER 2018-06-30 17:31 | Emergency (ER) | payer MEDICAID ==
[2018-06-30 17:41] VITALS: BP 130/91
--- NOTE | 2018-06-30 19:33 | ER Document Report ---
ED Wound - General Chief Complaint: Wound Recheck Stated Complaint: WOUND RECHECK Time Seen by Provider: 06/30/18 17:53 Mode of Arrival: Ambulatory Information source: Patient Notes: Patient is a 27-year-old female who presents to the emergency department with request for wound recheck and packing removal. Patient states she has an abscess to her right breast, she states this was incised and drained at another emergency department 2 days ago. She reports that she is continuing to change the dressing 4 times a day however she states there is very minimal drainage coming out at this point in time. She states that she is continuing to take her antibiotics. TRAVEL OUTSIDE OF THE [place] IN LAST 30 DAYS: No - Related Data Allergies/Adverse Reactions: No Known Allergies Allergy (Verified 06/17/18 00:36) Past Medical History - General Information source: Patient - Social History Smoking Status: Never Smoker Chew tobacco use (# tins/day): No Frequency of alcohol use: None Drug Abuse: None Family History: Arthritis, Hyperlipidemia. denies: CAD, COPD, CVA, DM, Hypertension, Malignancy, Thyroid Disfunction Patient has suicidal ideation: No Patient has homicidal ideation: No Neurological Medical History: Reports: Hx Migraine Renal/ Medical History: Reports: Hx Ovarian Cysts. Denies: Hx Peritoneal Dialysis Skin Medical History: Reports Hx Cellulitis Past Surgical History: Reports: Hx Abdominal Surgery - Laparoscopy for an adnexal mass found to be only the fallopian tube, Hx Gynecologic Surgery - Ovarian cyst removed - Immunizations Immunizations up to date: Yes Hx Diphtheria, Pertussis, Tetanus Vaccination: Yes Review of Systems - Review of Systems Skin: See HPI Physical Exam - Vital signs Vitals: Temp Pulse Resp BP Pulse Ox 98.2 F 101 H 18 130/91 H 97 06/30/18 17:39 06/30/18 17:39 06/30/18 17:39 06/30/18 17:39 06/30/18 17:39 - Notes Notes: PHYSICAL EXAMINATION: GENERAL: Well-appearing, well-nourished and in no acute distress. HEAD: Atraumatic, normocephalic. EYES: Pupils equal round extraocular movements intact, conjunctiva are normal. ENT: Nares patent NECK: Normal range of motion LUNGS: No respiratory distress Musculoskeletal: Normal range of motion NEUROLOGICAL: Normal speech, normal gait. PSYCH: Normal mood, normal affect. SKIN: Warm, Dry, normal turgor, no rashes or lesions noted. Healing, draining abscess noted to right breast with packing in place. There is no surrounding erythema. Course - Re-evaluation Re-evalutation: Packing was removed, new dressing applied. Patient instructed to continue taking her antibiotics as prescribed. - Vital Signs Vital signs: Temp Pulse Resp BP Pulse Ox 98.2 F 101 H 18 130/91 H 97 06/30/18 17:39 06/30/18 17:39 06/30/18 17:39 06/30/18 17:39 06/30/18 17:39 Discharge - Discharge Clinical Impression: Encounter for wound re-check Condition: Stable Disposition: HOME, SELF-CARE Additional Instructions: Your abscess appears to be healing well. Since there is not been much drainage , I will not repack it at this time. Please continue to take your antibiotics.
== END 2018-06-30 19:38 | disposition home or self-care (01) ==
LOC: ER 17:31
DX: Z48.01 Encounter for change or removal of surgical wound dressing (principal); N61.1 Abscess of the breast and nipple
CPT/HCPCS: 99282

== ENCOUNTER 2018-07-10 02:19 | Inpatient (IN) | payer MEDICAID ==
[2018-07-10 03:05] LABS: APPEARANCE,URINE SLIGHTLY-CLOUDY; BILIRUBIN,URINE NEGATIVE (NEGATIVE); COLOR,URINE YELLOW; GLUCOSE, URINE 150 mg/dL (NEGATIVE); KETONES,URINE NEGATIVE (NEGATIVE); LEUKOCYTE ESTERASE,URINE TRACE (NEGATIVE); NITRITE,URINE NEGATIVE (NEGATIVE); PROTEIN,URINE NEGATIVE (NEGATIVE); URINE SPECIFIC GRAVITY 1.021; UROBILINOGEN,URINE NEGATIVE mg/dL (<2.0)
[2018-07-10 03:28] LABS: URINE AMPHETAMINES SCREEN NEGATIVE; URINE BARBITURATES SCREEN NEGATIVE; URINE BENZODIAZEPINES SCREEN NEGATIVE; URINE COCAINE SCREEN NEGATIVE; URINE MARIJUANA (THC) SCREEN NEGATIVE; URINE METHADONE SCREEN NEGATIVE; URINE PHENCYCLIDINE SCREEN NEGATIVE
--- NOTE | 2018-07-10 03:43 | Admission Physical ---
Datetime Report Generated by CPN: 07/10/2018 03:43 CURRENT ADMISSION Chief Complaint: Uterine Contractions Indication for Induction: Not Applicable Admit Impression : Term, Intrauterine ; Active Labor Admit Plan: Admit to Unit; Initiate Labor Protocol ALLERGIES Medication Allergies: No Medication Allergies: No Known Allergies (06/17/2018) Latex: No Latex Allergies Food Allergies: N/A Environmental Allergies: N/A OBSTETRICAL HISTORY EDC: 07/13/2018 00:00 : 2 Para: 1 Term: 1 : 0 SAB: 1 IAB: 0 Ectopic: 0 Livin Cesareans: 0 VBACs: 0 Multiple Births: 0 Gestational Diabetes: No Rh Sensitization: No Incompetent Cervix: No FAIZA: No Infertility: No ART Treatment: No Uterine Anomaly: No IUGR: No Hx Previous C/S: No Macrosomia: No Hx Loss/Stillborn: No PIH: No Hx : No Placenta Previa/Abruption: No Depression/PP Depression: No PTL/PROM: No Post Hemorrhage: No Current Procedures: Ultrasound Obstetrical History Comments: G1 - 2011, , Girl G2 - Current with Subchronianic hematoma SEE RECORDS Alcohol: No Marijuana : No Cocaine: No Other Illicit Drugs: Yes Illicit Drug Comments: hx. methamphetamines Cigarettes: Former Smoker. [id number] MEDICAL HISTORY Diabetes: No Blood Transfusion: No Pulmonary Disease (Asthma, TB): No Breast Disease: No Hypertension: No Developer Prover Mechanical Surgery: No Heart Disease: No Hosp/Surgery: No Autoimmune Disorder: No Anesthetic Complications: No Kidney Disease: Yes Abnormal Pap Smear: No Neuro/Epilepsy: No Psychiatric Disorders: No Other Medical Diseases: No Hepatitis/Liver Disease: No Significant Family History: No Varicosities/Phlebitis: No Trauma/Violence : No Thyroid Dysfunction: No Medical History Comments: UTI's INFECTIOUS HISTORY Gonorrhea: No Genital Herpes: No Chlamydia: No Tuberculosis: No Syphilis: No Hepatitis: No HIV/AIDS Exposure: No Rash or Viral Illness: No HPV: No PHYSICAL EXAM General: Normal HEENT: Normal Neurologic: Normal Thyroid: Normal Heart: Normal Lungs: Normal Breast: Deferred Back: Normal Abdomen: Normal Genitourinary Exam: Normal Extremities: Normal DTRs: Normal Pelvic Type: Adequate Vital Signs: Reviewed VAGINAL EXAM Dilatation: 4 Effacement: 50 Station: -1 MEMBRANES Pooling: Negative Membranes: Intact FETUS A EGA: 39.4 Monitoring: External US FHR- Baseline: 150 Variability: Moderate 6-25bpm Accelerations: 15X15 Decelerations: None FHR Category: Category I Presentation: Vertex Admit Comment: Likely early labor, variables noted. Will admit. INFORMED CONSENT Signature: with User ID: [email or web address]
[2018-07-10] MEDS ORDERED: MISOPROSTOL 0.2 MG TABLET ONE (03:44)
[2018-07-10] MEDS ORDERED: OXYTOCIN 10 UNIT/ML VIAL ONE ×2 (03:44→13:10)
[2018-07-10] MEDS ORDERED: OXYTOCIN/NORMAL SALINE 20 UNIT/1,000 ML RTUINJ ONE (03:45)
[2018-07-10] MEDS ORDERED: LIDOCAINE 1% INJ-PF (10 MG/ML) 30 ML SDV ONE (03:45)
[2018-07-10 04:34] LABS: ABSOLUTE BASOPHILS # (AUTO) 0.1 10^3/uL (0.0-0.2); ABSOLUTE EOSINOPHILS # (AUTO) 0.1 10^3/uL (0.0-0.6); ABSOLUTE LYMPHOCYTES (AUTO) 2.9 10^3/uL (0.5-4.7); ABSOLUTE MONOCYTES (AUTO) 0.7 10^3/uL (0.1-1.4); ABSOLUTE NEUT (AUTO) 9.4 10^3/uL (1.7-8.2); BASOPHILS % (AUTO) 0.4 % (0-2); EOSINOPHILS % (AUTO) 0.6 % (0-6); HEMOGLOBIN 11.8 g/dL (12.0-15.5); LYMPHOCYTES % (AUTO) 21.9 % (13-45); MEAN CORPUSCULAR HEMOGLOBIN 27.4 pg (27.0-33.4); MEAN CORPUSCULAR HGB CONC 33.8 g/dL (32.0-36.0); MEAN CORPUSCULAR VOLUME 81 fl (80-97); PLATELET COUNT 206 10^3/uL (150-450); RED BLOOD COUNT 4.32 10^6/uL (3.72-5.28); RED CELL DISTRIBUTION WIDTH 14.8 % (11.5-14.0); SEGMENTED NEUTROPHILS % (AUTO) 72.1 % (42-78); TOTAL CELLS COUNTED % (AUTO) 100 %; WHITE BLOOD COUNT 13.1 10^3/uL (4.0-10.5)
[2018-07-10] MEDS ORDERED: EPHEDRINE SULFATE INJ 50 MG/1 ML AMPULE ONE ×2 (05:42→13:11)
[2018-07-10] MEDS ORDERED: BUPIVACAINE HCL 0.5 % INJ/PF 30 ML SDV ONE ×2 (05:43→13:57)
[2018-07-10] MEDS ORDERED: FENTANYL/BUPIVACAINE/NS/PF 300 MCG/150 ML RTUINJ EPI ONE (05:43)
[2018-07-10] MEDS: RINGERS SOLUTION,LACTATED 1,000 ML IV PRN (07:20)
[2018-07-10] MEDS ORDERED: ACETAMINOPHEN 325 MG TABLET PO ONE (08:37)
[2018-07-10] MEDS ORDERED: ACETAMINOPHEN 325 MG TABLET ONE ×2 (08:40→08:42)
[2018-07-10] MEDS ORDERED: ONDANSETRON HCL INJ/PF 4 MG/2 ML SDV ONE (09:17)
[2018-07-10] MEDS ORDERED: METOCLOPRAMIDE HCL INJ/PF 10 MG/2 ML SDV ONE (09:17)
[2018-07-10] MEDS ORDERED: SUCCINYLCHOLINE CHLORIDE INJ 200 MG/10 ML VIAL ONE (09:17)
[2018-07-10] MEDS ORDERED: OXYTOCIN/NORMAL SALINE 20 UNIT/1,000 ML RTUINJ IV PRN ×2 (10:26→14:29)
[2018-07-10] MEDS ORDERED: LIDOCAINE 2%/EPINEPHRINE INJ 20 ML VIAL ONE (11:32)
[2018-07-10] MEDS ORDERED: SODIUM BICARBONATE 8.4% INJ 50 MEQ/50 ML DISP.SYRIN ONE (11:33)
[2018-07-10] MEDS ORDERED: CITRIC ACID/SODIUM CITRATE ORAL SOLN 15 ML UDCUP ONE (12:50)
[2018-07-10] MEDS ORDERED: CEFAZOLIN 2 GM/D5W RTU 2 GM/50 ML RTUPB IV ONE (12:50)
[2018-07-10] MEDS ORDERED: PROPOFOL INJ 200 MG/20 ML VIAL IV ONE (13:11)
[2018-07-10] MEDS ORDERED: BUPIVACAINE HCL/DEX-WATER/PF 15 MG/2 ML AMPULE ONE (13:11)
[2018-07-10] MEDS ORDERED: FENTANYL CITRATE INJ/PF 100 MCG/2 ML AMPUL ONE ×2 (13:11→16:04)
[2018-07-10] MEDS ORDERED: MIDAZOLAM 2 MG/2 ML INJ ONE (13:11)
[2018-07-10] MEDS ORDERED: KETAMINE HCL INJ 500 MG/10 ML VIAL ONE (13:19)
[2018-07-10] MEDS ORDERED: MORPHINE SULFATE 10 MG/ML INJ ONE ×2 (13:19→15:44)
[2018-07-10] MEDS ORDERED: LIDOCAINE 0.5% INJ-PF (5 MG/ML) 50 ML SDV ONE (13:56)
[2018-07-10] MEDS ORDERED: ACETAMINOPHEN 1,000 MG/100 ML RTUPB IV ONE (13:56)
[2018-07-10] MEDS ORDERED: HYDROMORPHONE HCL INJ/PF 2 MG/ML AMPULE ONE (14:11)
[2018-07-10] MEDS ORDERED: ACETAMINOPHEN 325 MG TABLET PO PRN (14:29)
[2018-07-10] MEDS ORDERED: SIMETHICONE 80 MG TAB.CHEW PO PRN (14:29)
[2018-07-10] MEDS ORDERED: OXYCODONE-ACETAMINOPHEN 5-325 MG TABLET PO PRN (14:29)
[2018-07-10] MEDS ORDERED: RINGERS SOLUTION,LACTATED 1,000 ML IV PRN (14:29)
[2018-07-10] MEDS ORDERED: ACETAMINOPHEN 1,000 MG/100 ML RTUPB IV PRN (14:29)
[2018-07-10] MEDS ORDERED: DIPH/PERTUSS(ACELL)/TETANUS VAC/PF 0.5 ML SYR (>=10YO) IM PRN (14:29)
[2018-07-10] MEDS ORDERED: PROMETHAZINE HCL INJ 25 MG/1 ML VIAL IV PRN (14:29)
[2018-07-10] MEDS ORDERED: MEASLES,MUMPS&RUBELLA VACC/PF 0.5 ML VIAL SUBCUT PRN (14:29)
[2018-07-10] MEDS ORDERED: KETOROLAC TROMETHAMINE INJ/PF 30 MG/1 ML SDV ONE (15:44)
--- NOTE | 2018-07-10 16:26 | Warning Signs in Babies ---
VOD Warning Signs Datetime Report Generated by [facility]: 07/10/2018 16:26 VOD#608 -Warning Signs in Babies: Needs to be viewed. (04/16/2018 13:58:Lupis Parham RN)
[2018-07-10] MEDS: MORPHINE SULFATE 10 MG/ML INJ IV PRN ×2 (16:43→20:51)
--- NOTE | 2018-07-10 16:52 | Delivery Summary ---
Del Sum A-C Datetime Report Generated by CPN: 07/10/2018 16:52 DELIVERY PERSONNEL DELIVERY PERSONNEL: [id number] Delivery Doctor:: Dalila Harkins MD Anesthesiologist:: Mickie Mcrae MD LICENSED PHYSICAL THERAPY ASSISTANT:: Ashanti Jackson CRNA Labor and Delivery Nurse:: Kacy Shen RN Blueprint Maker:: Lupis Parham RN Neonatal Nurse Practitioner:: MARY JO Srinivasan Nursery Nurse:: Td Veras RN Heading And Priming Tool Setter/SERVICE DESK TEAM LEAD: ST Amelia Heading And Priming Tool Setter/SERVICE DESK TEAM LEAD: Yary Martínez PACK WORKER SUPERVISOR MATERNAL INFORMATION Delivery Anesthesia: Epidural; General Medications After Delivery: Pitocin Bolus-Please Comment Meds After Delivery Comment: Pitocin 20 units in 1 L NS bolusing per order Maternal Complications: Other Complication Details: failure to descend LABOR SUMMARY EDC: 07/13/2018 00:00 No. Babies in Womb: 1 Attempted: No Labor Anesthesia: Epidural LABOR INFORMATION Reason for Induction: Not Applicable Onset of Labor: 07/10/2018 06:00 Oxytocin: Augmentation Group B Beta Strep: Negative Antibiotics # of Doses: 1 Antibiotics Time of Last Dose: 1318 Name of Antibiotic Given: Ancef 2 grams Steroids Given: None Reason Steroids Not Administered: Not Applicable MEMBRANES Membranes Rupture Method: Artificial Rupture of Membranes: 07/10/2018 09:11 Length of Rupture (hr): 4.53 Amniotic Fluid Color: Light Meconium Amniotic Fluid Amount: Moderate Amniotic Fluid Odor: Normal STAGES OF LABOR Stage 3 hr: 0 Stage 3 min: 1 Total Time in Labor hr: 7 Total Time in Labor min: 44 VAGINAL DELIVERY Episiotomy: None Laceration #1: None Laceration Extension #1: N/A Laceration Repair: Not Applicable Sponge Count Correct: N/A Sharps Count Correct: N/A CSECTION DELIVERY Primary Indication: Failure of Descent Secondary Indication: Nonreassuring Status CSection Urgency: Non-Scheduled CSection Incidence: Primary Labor: Labor Elective: Nonelective CSection Incision: Lower Uterine Transverse BABY A INFORMATION Infant Delivery Date/Time: 07/10/2018 13:43 Method of Delivery: Born in Route : No : N/A Forceps: N/A Vacuum Extraction: N/A Shoulder Dystocia : No PRESENTATION/POSITION BABY A Presentation: Cephalic Cephalic Presentation: Vertex Breech Presentation: N/A PLACENTA INFORMATION BABY A Placenta Delivery Time : 07/10/2018 13:44 Placenta Method of Delivery: Manual Removal Placenta Status: Delivered SCORES BABY A Heart Rate 1 min: >100 bpm Resp Effort 1 min: Good Cry Reflex Irritability 1 min: Cough or Sneeze or Pulls Away Muscle Tone 1 min: Some Flexion of Extremities Color 1 min: Blue/Pale Resuscitation Effort 1 min: Tactile Stimulation SCORE 1 MIN: 7 Heart Rate 5 min: >100 bpm Resp Effort 5 min: Good Cry Reflex Irritability 5 min: Cough or Sneeze or Pulls Away Muscle Tone 5 min: Active Motion Color 5 min: Body [place], Extremities Blue Resuscitation Effort 5 min: Tactile Stimulation SCORE 5 MIN: 9 INFORMATION BABY A Gestational Age at Delivery: 39.4 Gestational Status: Full Term- 39- 40.6 Weeks Infant Outcome : Liveborn Condition : Stable Sex: Male IDENTIFICATION BABY A Infant Verification Date/Time: 07/10/2018 13:45 ID Band Number: [id number] Mother's Name Verified: Yes RN Verifying Infant: C Caribou RN J Ac RN CORD INFORMATION BABY A No. Cord Vessels: 3 Nuchal Cord : Around Neck x1, Loose Cord Blood Taken: Yes-For Storage (Mom's Blood type +) Suction: None ASSESSMENT BABY A Skin to Skin: No Skin to Skin Time (min): 0 BABY B INFORMATION : N/A
[2018-07-10 16:55] LABS: HEMATOCRIT 29.9 % (36.0-47.0); MEAN CORPUSCULAR HGB CONC 33.5 g/dL (32.0-36.0); MEAN CORPUSCULAR VOLUME 84 fl (80-97); PLATELET COUNT 165 10^3/uL (150-450); RED BLOOD COUNT 3.57 10^6/uL (3.72-5.28); RED CELL DISTRIBUTION WIDTH 14.9 % (11.5-14.0); WHITE BLOOD COUNT 23.7 10^3/uL (4.0-10.5)
[2018-07-10] MEDS: OXYCODONE-ACETAMINOPHEN 5-325 MG TABLET PO PRN (18:22)
[2018-07-10] MEDS: DOCUSATE SODIUM 100 MG CAPSULE PO SCH (18:22)
--- NOTE | 2018-07-10 21:57 | OPERATIVE REPORT E ---
Operative Report NAME: HAMLET MCCABE : 1990 AGE: 27Y DATE OF SURGERY: 07/10/2018 ROOM: 215 PREOPERATIVE DIAGNOSES: 1. INTRAUTERINE AT 39 WEEKS AND 4 DAYS. 2. FAILURE TO DESCEND. 3. NONREASSURING HEART TONES. 4. MALPRESENTATION. POSTOPERATIVE DIAGNOSES: 1. INTRAUTERINE AT 39 WEEKS AND 4 DAYS. 2. FAILURE TO DESCEND. 3. NONREASSURING HEART TONES. 4. MALPRESENTATION. OPERATION: Low-transverse hysterotomy section. SURGEON: EDDIE ALMONTE M.D. ANESTHESIA: Dr. Mcrae with general. FINDINGS: Male cephalic presentation with Apgars of 7 and 9. ESTIMATED BLOOD LOSS: 800 mL. SPECIMENS REMOVED: Placenta. PROCEDURE: The patient was taken to the operating room, prepared and draped in normal sterile fashion in a supine position with a leftward tilt. A transverse skin incision was made with a scalpel and carried through to the underlying layer of fascia with the same scalpel. The fascia was excised to the midline, extended laterally with Justine. The fascia was then dissected from the rectus muscle sharply with Justine and the rectus muscle was divided. The peritoneal cavity was entered bluntly with surgeon finger fracture. The bladder blade was inserted. The hysterotomy was nicked with a scalpel and extended laterally with surgeon finger fracture. The was then lifted from the pelvis and delivered atraumatically. The nose and mouth were suctioned with a suction bulb. The cord was clamped and cut, and the infant was handed off to waiting editorial specialist. The cord blood was collected, the placenta was removed manually. The uterus was exteriorized and cleared of clots and debris. The hysterotomy was closed with 0 Monocryl in a running locked fashion. A second layer of the same suture was used to imbricate to ensure hemostasis. The uterus was returned to the abdomen and the peritoneal cavity was cleared of clots and debris. The rectus muscle and peritoneum were reapproximated with mattress stitch of 2-0 chromic. The fascia was closed with 0 Vicryl, the subcutaneous layer was closed with plain catgut, and the skin was closed with 4-0 Vicryl. The patient was then injected with approximately 30 mL of bupivacaine for subcutaneous anesthesia. The patient tolerated the procedure well. Sponge, lap and needle counts were correct x2. The patient was taken to recovery in stable condition. DICTATING PHYSICIAN: EDDIE ALMONTE M.D. [id number] PHY#: [id number] ID: [id number] JOB#: [id number] ACCT: [id number] cc:EDDIE ALMONTE M.D. >
[2018-07-10] MEDS: KETOROLAC TROMETHAMINE INJ/PF 30 MG/1 ML SDV IV SCH (22:08)
[2018-07-11] MEDS: RINGERS SOLUTION,LACTATED 1,000 ML IV PRN (01:54)
[2018-07-11] MEDS: MORPHINE SULFATE 10 MG/ML INJ IV PRN (01:55)
[2018-07-11 06:36] LABS: HEMATOCRIT 24.3 % (36.0-47.0); HEMOGLOBIN 8.3 g/dL (12.0-15.5); MEAN CORPUSCULAR HEMOGLOBIN 28.1 pg (27.0-33.4); MEAN CORPUSCULAR HGB CONC 34.2 g/dL (32.0-36.0); MEAN CORPUSCULAR VOLUME 82 fl (80-97); PLATELET COUNT 152 10^3/uL (150-450); RED BLOOD COUNT 2.96 10^6/uL (3.72-5.28)
[2018-07-11] MEDS: KETOROLAC TROMETHAMINE INJ/PF 30 MG/1 ML SDV IV SCH (06:42)
[2018-07-11] MEDS: DOCUSATE SODIUM 100 MG CAPSULE PO SCH ×2 (09:37→17:47)
[2018-07-11] MEDS: PRENATAL VITAMIN W DHA CAPSULE PO SCH (09:37)
[2018-07-11] MEDS: OXYCODONE-ACETAMINOPHEN 5-325 MG TABLET PO PRN ×3 (09:38→21:50)
--- NOTE | 2018-07-11 10:47 | PDOC PROGRESS REPORT ---
Subjective-OB Progress Note for:: 07/11/18 - POD #1, for failure to descend. Pt doing well, UOB, no complaints. Hgb 8.3 this morning. A+, rubella immune. breast and bottle feeding Physical Exam (OB) Vital Signs: Temp Pulse Resp BP Pulse Ox 98.2 F 107 H 18 121/67 95 07/11/18 07:23 07/11/18 07:23 07/11/18 07:23 07/11/18 07:23 07/11/18 07:23 Intake & Output 07/10/18 07/11/18 07/12/18 06:59 06:59 06:59 Intake Total 1700 500 Output Total 900 400 Balance 800 100 Weight 110 kg - General General Appearance: Appears well, Alert In distress: None - PIH/Pre-Eclampsia Clonus: Negative Headache: Absent Epigastric Pain: No Visual Changes: No - Dressing Removed: No - opsite Incision: Dressing Closure Type: Sutures - Lochia Lochia Amount: Scant < 10 ml Lochia Color: Rubra/Red - Abdomen Description: Tender, Soft, Round Hernia Present: No Fundal Description: Firm, Midline Fundal Height: u/u - u/2 - Respiratory Respiratory Status: No respiratory distress Breath sounds: Clear - Cardiovascular Rhythm: Regular Heart Sounds: Normal auscultation - Abdominal Inspection: Normal Distension: No distension Tenderness: Nontender - +bowel sounds - Genitourinary Genitourinary Note: voiding - Extremities Upper extremity: Normal inspection Lower extremities: Tender - trace edema - Neurological Cognition: Normal Orientation: AAOx4 - Psychological Associated symptoms: Normal affect, Normal mood - Skin Skin Temperature: Warm Skin Moisture: Dry Objective-Diagnostic Laboratory: 07/11/18 06:10 07/10/18 07/11/18 16:26 06:10 WBC 23.7 H 15.0 H RBC 3.57 L 2.96 L Hgb 10.0 L 8.3 L Hct 29.9 L 24.3 L MCV 84 82 MCH 28.0 28.1 MCHC 33.5 34.2 RDW 14.9 H 15.0 H Plt Count 165 152 Assessment and Plan(PN) - Assessment and Plan (1) CPD (cephalo-pelvic disproportion) Qualifiers: Cephalopelvic disproportion type: due to unspecified factor Qualified Code( s): O33.9 - Maternal care for disproportion, unspecified Is this a current diagnosis for this admission?: Yes (2) Status post primary low transverse section Is this a current diagnosis for this admission?: Yes (3) Anemia, Is this a current diagnosis for this admission?: Yes Plan: start PO iron - Time Spent with Patient Time with patient: Less than 15 minutes Medications reviewed and adjusted accordingly: Yes - Disposition Anticipated Discharge: Home Within: within 48 hours
[2018-07-11] MEDS: FERROUS SULFATE 325 MG TABLET PO SCH (12:47)
[2018-07-11] MEDS ORDERED: IBUPROFEN 800 MG TABLET PO ONE (13:00)
[2018-07-11] MEDS: IBUPROFEN 800 MG TABLET PO SCH (21:10)
[2018-07-12] MEDS: OXYCODONE-ACETAMINOPHEN 5-325 MG TABLET PO PRN ×3 (02:06→13:01)
[2018-07-12] MEDS: IBUPROFEN 800 MG TABLET PO SCH ×2 (03:47→09:55)
--- NOTE | 2018-07-12 08:54 | PDOC PROGRESS REPORT ---
Subjective-OB Progress Note for:: 07/12/18 Subjective: Sitting up in bed, ready to go home, walking without vertigo, pain under control Physical Exam (OB) Vital Signs: Temp Pulse Resp BP Pulse Ox 98.4 F 95 22 H 117/63 92 07/12/18 07:18 07/12/18 07:18 07/12/18 07:18 07/12/18 07:18 07/12/18 07:18 Intake & Output 07/11/18 07/12/18 07/13/18 06:59 06:59 06:59 Intake Total 1700 1150 Output Total 900 650 Balance 800 500 Weight 110 kg - PIH/Pre-Eclampsia Clonus: Negative Headache: Absent Epigastric Pain: No Visual Changes: No - Dressing Removed: No - honeycomb dressing Incision: Dressing Closure Type: Sutures - Lochia Lochia Amount: Small 10-25 ml Lochia Color: Rubra/Red - Abdomen Description: Tender, Soft, Round Hernia Present: No Fundal Description: Firm, Midline Fundal Height: u/u - u/2 Objective-Diagnostic Laboratory: 07/11/18 06:10 Assessment and Plan(PN) - Assessment and Plan (1) Anemia, Is this a current diagnosis for this admission?: Yes (2) CPD (cephalo-pelvic disproportion) Qualifiers: Cephalopelvic disproportion type: due to unspecified factor Qualified Code( s): O33.9 - Maternal care for disproportion, unspecified Is this a current diagnosis for this admission?: Yes (3) Status post primary low transverse section Is this a current diagnosis for this admission?: Yes - Time Spent with Patient Time with patient: Less than 15 minutes Medications reviewed and adjusted accordingly: Yes - Disposition Anticipated Discharge: Home Within: within 24 hours
--- NOTE | 2018-07-12 09:01 | PDOC DISCHARGE SUMMARY ---
Final Diagnosis Discharge Date: 07/12/18 - Final Diagnosis (1) Anemia, Is this a current diagnosis for this admission?: Yes (2) CPD (cephalo-pelvic disproportion) Is this a current diagnosis for this admission?: Yes (3) Status post primary low transverse section Is this a current diagnosis for this admission?: Yes Discharge Data - Discharge Medication Prescriptions: Oxycodone HCl/Acetaminophen [Percocet 5-325 mg Tablet] 1 tab PO Q4HP PRN #20 tablet PRN Reason: Ferrous Sulfate [Feosol 325 mg Tablet] 325 mg PO DAILY #60 tablet Ibuprofen [Motrin 800 mg Tablet] 800 mg PO Q6A #60 tablet Home Medications: No122/Iron/Folic Acid [ Multi Tablet] 1 each PO DAILY 04/16/18 Ferrous Sulfate [Feosol 325 mg Tablet] 325 mg PO DAILY #60 tablet 07/12/18 Ibuprofen [Motrin 800 mg Tablet] 800 mg PO Q6A #60 tablet 07/12/18 Oxycodone HCl/Acetaminophen [Percocet 5-325 mg Tablet] 1 tab PO Q4HP PRN #20 tablet 07/12/18 Reason(s) for Admission: Onset of Labor, Ceasarean Section-Primary - failure to descend, NR strip Procedures: NST, Ultrasound Intrapartum Procedure(s): : Low Cervical, Transverse - Data Baby 1 Male at 1 minute: 7 at 5 minutes: 9 Weight: 3.941 kg Home with Mother: Yes Complications: No - Diagnosis Test Laboratory: Temp Pulse Resp BP Pulse Ox 98.4 F 95 22 H 117/63 92 07/12/18 07:18 07/12/18 07:18 07/12/18 07:18 07/12/18 07:18 07/12/18 07:18 07/10/18 07/10/18 07/10/18 02:31 04:20 16:26 RBC 4.32 3.57 L Hgb 11.8 L 10.0 L Hct 35.0 L 29.9 L Urine Opiates Screen NEGATIVE 07/11/18 06:10 RBC 2.96 L Hgb 8.3 L Hct 24.3 L Urine Opiates Screen - Discharge information/Instructions Discharge Activity: Activity As Tolerated, No Lifting Over 10 Pounds, No Lifting /Push/Pulling, Pelvic Rest Discharge Diet: As Tolerated, Regular Disposition: HOME, SELF-CARE Follow up with: [facility] in: 5, Days
[2018-07-12] MEDS: FERROUS SULFATE 325 MG TABLET PO SCH (09:55)
[2018-07-12] MEDS: DOCUSATE SODIUM 100 MG CAPSULE PO SCH (09:55)
[2018-07-12] MEDS: PRENATAL VITAMIN W DHA CAPSULE PO SCH (09:55)
[2018-07-12 10:49] LABS: ABSOLUTE EOSINOPHILS # (AUTO) 0.1 10^3/uL (0.0-0.6); ABSOLUTE LYMPHOCYTES (AUTO) 2.1 10^3/uL (0.5-4.7); ABSOLUTE MONOCYTES (AUTO) 0.6 10^3/uL (0.1-1.4); ABSOLUTE NEUT (AUTO) 6.8 10^3/uL (1.7-8.2); BASOPHILS % (AUTO) 0.1 % (0-2); EOSINOPHILS % (AUTO) 1.2 % (0-6); HEMATOCRIT 24.1 % (36.0-47.0); HEMOGLOBIN 8.3 g/dL (12.0-15.5); LYMPHOCYTES % (AUTO) 21.5 % (13-45); MEAN CORPUSCULAR HEMOGLOBIN 28.2 pg (27.0-33.4); MEAN CORPUSCULAR HGB CONC 34.5 g/dL (32.0-36.0); MEAN CORPUSCULAR VOLUME 82 fl (80-97); MONOCYTES % (AUTO) 6.1 % (3-13); PLATELET COUNT 181 10^3/uL (150-450); RED BLOOD COUNT 2.96 10^6/uL (3.72-5.28); RED CELL DISTRIBUTION WIDTH 15.4 % (11.5-14.0); SEGMENTED NEUTROPHILS % (AUTO) 71.1 % (42-78); TOTAL CELLS COUNTED % (AUTO) 100 %; WHITE BLOOD COUNT 9.5 10^3/uL (4.0-10.5)
[2018-07-12 12:18] VITALS: BP 132/75
== END 2018-07-12 14:15 | disposition home or self-care (01) | DRG 788 ==
LOC: LC 02:19 → LR 03:46 → 2S 17:05
PROVIDERS: ADMIT Obstetrics & Gynecology; ATTEND Obstetrics & Gynecology
PROC: 10D00Z1 Extraction of Products of Conception, Low, Open Approach (ICD-10-PCS; principal; 2018-07-10)
PROC: 4A1HXCZ Monitoring of Products of Conception, Cardiac Rate, External Approach (ICD-10-PCS; 2018-07-10)
DX: O62.1 Secondary uterine inertia (principal); O33.9 Maternal care for disproportion, unspecified; Z37.0 Single live birth; O90.81 Anemia of the puerperium; D64.9 Anemia, unspecified; O76 Abnormality in fetal heart rate and rhythm complicating labor and delivery; O69.81X0 Labor and delivery complicated by cord around neck, without compression, not applicable or unspecified; Z87.891 Personal history of nicotine dependence; Z3A.39 39 weeks gestation of pregnancy
CPT/HCPCS: 1961; 36415; 80307; 81005; 85025; 85027; 86592; 86850; 86900; 86901; 88307; 94760; 94799; J0131; J0330; J0690; J1170; J1885; J2250; J2270; J2405; J2590; J2704; J2765; J3010; J3490; J7120

== ENCOUNTER 2018-07-31 23:49 | Emergency (ER) | payer MEDICAID ==
[2018-08-01 00:18] VITALS: BP 126/76
--- NOTE | 2018-08-01 00:49 | ER Document Report ---
ED Oral Problem - General Chief Complaint: Toothache Stated Complaint: DENTAL PROBLEM, PAIN IN EYE, EAR AND HEAD Time Seen by Provider: 08/01/18 00:49 Mode of Arrival: Ambulatory Information source: Patient Notes: Patient is a 27-year-old female who presents with dental pain for the past 2 days. Patient reports having a known cavity in her bottom right wisdom tooth, it became acutely worse yesterday. She reports taking 800 mg of ibuprofen without improvement. She denies fevers or chills, no swelling of the face, no recent injury. Of note, patient states regarding pain medications that "they gave me Perc 5s after my but that barely work." TRAVEL OUTSIDE OF THE [place] IN LAST 30 DAYS: No - HPI Patient complains to provider of: Jaw pain, Swelling of face, Toothache Onset: Yesterday Onset: Gradual Quality of pain: Achy, Throbbing Severity: Severe Pain Level: 4 Context: Other - Dental cavity Associated symptoms: Dental decay, Headache, Jaw pain. denies: Cough, Tongue swelling Worsened by: Cold Relieved by: Nothing Similar symptoms previously: No Recently seen / treated by doctor/dentist: No - Related Data Allergies/Adverse Reactions: No Known Allergies Allergy (Verified 06/17/18 00:36) Past Medical History - General Information source: Patient - Social History Smoking Status: Current Every Day Smoker Chew tobacco use (# tins/day): No Frequency of alcohol use: None Drug Abuse: None Lives with: Family Family History: Arthritis, Hyperlipidemia. denies: CAD, COPD, CVA, DM, Hypertension, Malignancy, Thyroid Disfunction - Medical History Medical History: Negative - Past Medical History Cardiac Medical History: Reports: None Pulmonary Medical History: Reports: None EENT Medical History: Reports: None Neurological Medical History: Reports: Hx Migraine Endocrine Medical History: Reports: None Renal/ Medical History: Reports: Hx Ovarian Cysts. Denies: Hx Peritoneal Dialysis Malignancy Medical History: Reports: None GI Medical History: Reports: None Musculoskeletal Medical History: Reports None Skin Medical History: Reports Hx Cellulitis Psychiatric Medical History: Reports: None Traumatic Medical History: Reports: None Infectious Medical History: Reports: None Past Surgical History: Reports: Hx Abdominal Surgery - Laparoscopy for an adnexal mass found to be only the fallopian tube, Hx Gynecologic Surgery - Ovarian cyst removed - Immunizations Immunizations up to date: Yes Hx Diphtheria, Pertussis, Tetanus Vaccination: Yes Review of Systems - Review of Systems -: Yes ROS unobtainable due to patient's medical condition Constitutional: No symptoms reported EENT: Mouth pain, Mouth swelling, Dental problem Cardiovascular: No symptoms reported Respiratory: No symptoms reported Gastrointestinal: No symptoms reported Genitourinary: No symptoms reported Female Genitourinary: No symptoms reported Musculoskeletal: No symptoms reported Skin: No symptoms reported Hematologic/Lymphatic: No symptoms reported Neurological/Psychological: No symptoms reported -: Yes All other systems reviewed and negative Physical Exam - Vital signs Vitals: Temp Pulse Resp BP Pulse Ox 98.4 F 60 16 126/76 H 100 08/01/18 00:17 08/01/18 00:17 08/01/18 00:17 08/01/18 00:17 08/01/18 00:17 Interpretation: Normal - General General appearance: Appears well, Alert In distress: None - HEENT Head: Normocephalic, Atraumatic Eyes: Normal Pupils: PERRL Teeth diagram: 1 - Partial erosion of the anterior surface down to the gumline, no associated gingival swelling or drainage Pharynx: Normal Neck: Normal - Respiratory Respiratory status: No respiratory distress Chest status: Nontender Breath sounds: Normal Chest palpation: Normal - Cardiovascular Rhythm: Regular Heart sounds: Normal auscultation Murmur: No - Abdominal Inspection: Normal Distension: No distension Bowel sounds: Normal Tenderness: Nontender Organomegaly: No organomegaly - Rectal Tenderness: No - Deferred - Genitourinary Notes: Deferred - Back Back: Normal, Nontender - Extremities General upper extremity: Normal inspection, Nontender, Normal color, Normal ROM , Normal temperature General lower extremity: Normal inspection, Nontender, Normal color, Normal ROM , Normal temperature, Normal weight bearing. No: Immanuel's sign - Neurological Neuro grossly intact: Yes Cognition: Normal Orientation: AAOx4 [place] Coma Scale Eye Opening: Spontaneous Ceci Coma Scale Verbal: Oriented Ceci Coma Scale Motor: Obeys Commands [place] Coma Scale Total: 15 Speech: Normal Motor strength normal: LUE, RUE, LLE, RLE Sensory: Normal - Psychological Associated symptoms: Normal affect, Normal mood - Skin Skin Temperature: Warm Skin Moisture: Dry Skin Color: Normal Course - Re-evaluation Re-evalutation: 08/01/18 01:43 Plan is to give the patient oral penicillin with Ultram and discharged home with dental follow-up. Patient is in agreement and understands the plan. - Vital Signs Vital signs: Temp Pulse Resp BP Pulse Ox 98.4 F 60 16 126/76 H 100 08/01/18 00:17 08/01/18 00:17 08/01/18 00:17 08/01/18 00:17 08/01/18 00:17 Discharge - Discharge Clinical Impression: Pain due to dental caries Condition: Good Disposition: HOME, SELF-CARE Instructions: Toothache ([facility]), Penicillin V K ([facility]) Additional Instructions: Please follow-up with your dentist as soon as possible to discuss dental extraction. Return to the emergency department immediately if you experience increased swelling of the face, high fevers, or any other concerning symptom. Prescriptions: Tramadol HCl [Ultram 50 mg Tablet] 50 mg PO Q6HP PRN 7 Days #28 tablet PRN Reason: Penicillin V Potassium [Penicillin Vk 500 mg Tablet] 500 mg PO BID 7 Days #14 tablet Referrals: JESSE MCCABE MD [Primary Care Provider] - Follow up as needed Print Language: Trinidadian
[2018-08-01] MEDS ORDERED: TRAMADOL HCL 50 MG TABLET PO ONE (01:13)
[2018-08-01] MEDS ORDERED: PENICILLIN V POTASSIUM 500 MG TABLET PO ONE (01:13)
== END 2018-08-01 02:17 | disposition home or self-care (01) ==
LOC: ER 23:49
DX: K02.9 Dental caries, unspecified (principal); K03.2 Erosion of teeth; K08.89 Other specified disorders of teeth and supporting structures; F17.200 Nicotine dependence, unspecified, uncomplicated
CPT/HCPCS: 99282; J3490

== ENCOUNTER 2018-08-08 20:30 | Emergency (ER) | payer MEDICAID ==
--- NOTE | 2018-08-08 21:16 | ER Document Report ---
ED Medical Screen (RME) - General Chief Complaint: Vaginal Bleeding Stated Complaint: VAGINAL BLEEDING/POST CSECTION Time Seen by Provider: 08/08/18 21:07 Notes: 28-year-old female, status post on 07/10/2018, chief complaint of vaginal bleeding. She states that she has been bleeding since the or vaginally but yesterday she started bleeding harder, at times she bleeds somewhat she has to change the pad every hour and a half. She states she has felt a little bit lightheaded, denies dizziness or syncope. Seen by NURSE ADVOCATE earlier in the office, prescribed control, not yet started taking them. No current symptoms. States she is already anemic and on iron. TRAVEL OUTSIDE OF THE [place] IN LAST 30 DAYS: No - Related Data Allergies/Adverse Reactions: No Known Allergies Allergy (Verified 06/17/18 00:36) Past Medical History Neurological Medical History: Reports: Hx Migraine Renal/ Medical History: Reports: Hx Ovarian Cysts. Denies: Hx Peritoneal Dialysis Skin Medical History: Reports Hx Cellulitis Past Surgical History: Reports: Hx Abdominal Surgery - Laparoscopy for an adnexal mass found to be only the fallopian tube, Hx Gynecologic Surgery - Ovarian cyst removed - Immunizations Immunizations up to date: Yes Hx Diphtheria, Pertussis, Tetanus Vaccination: Yes Physical Exam - Vital signs Vitals: Temp Pulse Resp BP Pulse Ox 98.8 F 94 16 120/64 98 08/08/18 21:06 08/08/18 21:06 08/08/18 21:06 08/08/18 21:06 08/08/18 21:06 - General General appearance: Appears well In distress: None Course - Vital Signs Vital signs: Temp Pulse Resp BP Pulse Ox 98.8 F 94 16 120/64 98 08/08/18 21:06 08/08/18 21:06 08/08/18 21:06 08/08/18 21:06 08/08/18 21:06
[2018-08-08 23:06] LABS: ABSOLUTE EOSINOPHILS # (AUTO) 0.2 10^3/uL (0.0-0.6); ABSOLUTE LYMPHOCYTES (AUTO) 2.8 10^3/uL (0.5-4.7); ABSOLUTE MONOCYTES (AUTO) 0.4 10^3/uL (0.1-1.4); ABSOLUTE NEUT (AUTO) 4.5 10^3/uL (1.7-8.2); BASOPHILS % (AUTO) 0.2 % (0-2); EOSINOPHILS % (AUTO) 2.5 % (0-6); HEMATOCRIT 31.9 % (36.0-47.0); HEMOGLOBIN 10.5 g/dL (12.0-15.5); LYMPHOCYTES % (AUTO) 35.5 % (13-45); MEAN CORPUSCULAR HEMOGLOBIN 25.9 pg (27.0-33.4); MEAN CORPUSCULAR HGB CONC 32.8 g/dL (32.0-36.0); MEAN CORPUSCULAR VOLUME 79 fl (80-97); PLATELET COUNT 253 10^3/uL (150-450); RED BLOOD COUNT 4.04 10^6/uL (3.72-5.28); RED CELL DISTRIBUTION WIDTH 15.8 % (11.5-14.0); SEGMENTED NEUTROPHILS % (AUTO) 56.8 % (42-78); TOTAL CELLS COUNTED % (AUTO) 100 %; WHITE BLOOD COUNT 7.9 10^3/uL (4.0-10.5)
[2018-08-08 23:17] LABS: APPEARANCE,URINE CLOUDY; BILIRUBIN,URINE NEGATIVE (NEGATIVE); COLOR,URINE YELLOW; GLUCOSE, URINE NEGATIVE (NEGATIVE); KETONES,URINE NEGATIVE (NEGATIVE); LEUKOCYTE ESTERASE,URINE TRACE (NEGATIVE); NITRITE,URINE NEGATIVE (NEGATIVE); PROTEIN,URINE 100 mg/dL (NEGATIVE); URINE SPECIFIC GRAVITY 1.026; UROBILINOGEN,URINE NEGATIVE mg/dL (<2.0)
[2018-08-08 23:19] LABS: ANION GAP 14 (5-19); BLOOD UREA NITROGEN 19 mg/dL (7-20); CALCIUM 9.7 mg/dL (8.4-10.2); CARBON DIOXIDE 25 mmol/L (22-30); CHLORIDE 104 mmol/L (98-107); GLUCOSE 92 mg/dL (75-110); POTASSIUM 3.9 mmol/L (3.6-5.0); SODIUM 142.9 mmol/L (137-145)
--- NOTE | 2018-08-08 23:59 | ER Document Report ---
ED General - General Chief Complaint: Vaginal Bleeding Stated Complaint: VAGINAL BLEEDING/POST CSECTION Time Seen by Provider: 08/08/18 21:07 Notes: Patient is a 28-year-old female presents with complaint of vaginal bleeding. Patient had a on July 10. Since then she said consistent vaginal bleeding. She says that times is worse than others. She [facility] They prescribed her control pill. She has not yet started taking it. She says she has some intermittent crampy abdominal pain. No fevers. No vomiting. No diarrhea. Tonight when she got home she had a sensation of a gush from her vaginal area. She then sat on toilet and some blood came to the ER for reevaluation. She says her hemoglobin at the OB office was 9.7. TRAVEL OUTSIDE OF THE [place] IN LAST 30 DAYS: No - Related Data Allergies/Adverse Reactions: No Known Allergies Allergy (Verified 06/17/18 00:36) Past Medical History - Social History Smoking Status: Current Every Day Smoker Frequency of alcohol use: None Drug Abuse: None Family History: Arthritis, Hyperlipidemia. denies: CAD, COPD, CVA, DM, Hypertension, Malignancy, Thyroid Disfunction Patient has suicidal ideation: No Patient has homicidal ideation: No Neurological Medical History: Reports: Hx Migraine Renal/ Medical History: Reports: Hx Ovarian Cysts. Denies: Hx Peritoneal Dialysis Skin Medical History: Reports Hx Cellulitis Past Surgical History: Reports: Hx Abdominal Surgery - Laparoscopy for an adnexal mass found to be only the fallopian tube, Hx Section, Hx Gynecologic Surgery - Ovarian cyst removed - Immunizations Immunizations up to date: Yes Hx Diphtheria, Pertussis, Tetanus Vaccination: Yes Review of Systems - Review of Systems Notes: My Normal Review Basic REVIEW OF SYSTEMS: CONSTITUTIONAL : Denies fever, chills, or sweats. Denies recent illness. RESPIRATORY: Denies cough, cold, or chest congestion. Denies shortness of breath, difficulty breathing, or wheezing. GASTROINTESTINAL: Denies abdominal pain. Denies nausea, vomiting, or diarrhea. GENITOURINARY: Denies difficulty urinating, painful urination, burning, frequency, or blood in urine. FEMALE GENITOURINARY: Vaginal bleeding NEUROLOGICAL: Denies altered mental status or loss of consciousness. ALL OTHER SYSTEMS REVIEWED AND NEGATIVE. Physical Exam - Vital signs Vitals: Temp Pulse Resp BP Pulse Ox 98.8 F 94 16 120/64 98 08/08/18 21:06 08/08/18 21:06 08/08/18 21:06 08/08/18 21:06 08/08/18 21:06 - Notes Notes: General Appearance: Well nourished, alert, cooperative, no acute distress, no obvious discomfort. Vitals: reviewed, See vital signs table. Lungs: No wheezing, No rales, No rhonci, No accessory muscle use, good air exchange bilaterally. Heart: Normal rate, Regular rythm, No murmur, no rub Abdomen: Normal BS, soft, No rigidity, mild suprapubic abdominal tenderness to palpation. scar appears to be healing appropriately. No surrounding redness or erythema around incision site., No guarding, no rebound, no abdominal masses, no organomegaly Pelvic exam: Pelvic exam performed with female nurse, Yuni, at bedside. Pelvic exam shows some blood in the vaginal vault. No clots. Cervical os did not have any clots in it. She does have a slow trickle of blood coming from cervical loss but otherwise no other acute concerning findings. Extremities: no edema. Skin: warm, dry, appropriate color, no rash Neuro: speech clear, oriented x 3, normal affect, responds appropriately to questions. Course - Re-evaluation Re-evalutation: 08/09/18 06:13 On exam patient is well-appearing. Her hemoglobin is actually increasing. She does have some vaginal bleeding but she does not have an active large heavy hemorrhage at this time. She was prescribed control which I encouraged her to take as this would likely help with her bleeding. I encouraged her follow-up with her RESIDENTIAL ROOFER HELPER doctor as scheduled. I encouraged her return to ER if she has recurrent heavy bleeding, dizziness, lightheadedness, or if she feels unwell. I do not suspect uterine rupture as she is a month past C- section and her abdomen is soft and very minimally tender to palpation. She has no peritoneal signs. Dictation of this chart was performed using voice recognition software; therefore, there may be some unintended grammatical errors. - Vital Signs Vital signs: Temp Pulse Resp BP Pulse Ox 98.2 F 87 16 116/70 98 08/09/18 01:05 08/09/18 01:05 08/09/18 01:05 08/09/18 01:05 08/09/18 01:05 - Laboratory Result Diagrams: 08/08/18 22:30 08/08/18 22:30 Laboratory results interpreted by me: 08/08/18 08/08/18 22:15 22:30 Hgb 10.5 L Hct 31.9 L MCV 79 L MCH 25.9 L RDW 15.8 H Urine Protein 100 H Urine Blood LARGE H Ur Leukocyte Esterase TRACE H Discharge - Discharge Clinical Impression: Vaginal bleeding Condition: Good Disposition: HOME, SELF-CARE Additional Instructions: Please start the control as instructed by your RESIDENTIAL ROOFER HELPER physician. Please return to the ER immediately if you develop dizziness, shortness of breath, worsening bleeding, or have any further concerns. Forms: Parent Work Note
[2018-08-09 01:06] VITALS: BP 116/70
== END 2018-08-09 01:17 | disposition home or self-care (01) ==
LOC: ER 20:30
DX: N93.9 Abnormal uterine and vaginal bleeding, unspecified (principal); F17.200 Nicotine dependence, unspecified, uncomplicated
CPT/HCPCS: 36415; 80048; 81001; 85025; 86850; 86900; 86901; 99283

== ENCOUNTER 2018-08-13 04:41 | Emergency (ER) | payer MEDICAID ==
[2018-08-13 04:46] VITALS: BP 120/66
--- NOTE | 2018-08-13 05:10 | ER Document Report ---
ED General - General Chief Complaint: Vaginal Bleeding Stated Complaint: VAGINAL BLEEDING Time Seen by Provider: 08/13/18 04:58 Notes: Patient is a 28-year-old female who presents to the emergency department with a chief complaint of vaginal bleeding. She states that she is constantly bleeding and today she passed a baseball sized. She does have associated cramping. Denies nausea, vomiting, and dysuria. She was seen in the emergency department 5 days ago. She was told to take her control, but she has not taken her medication. She had her baby on July 10. Her baby was delivered via C- section. She is not breast-feeding. She has not followed up with her MOVIE STUNT PERFORMER. TRAVEL OUTSIDE OF THE [place] IN LAST 30 DAYS: No - Related Data Allergies/Adverse Reactions: No Known Allergies Allergy (Verified 06/17/18 00:36) Past Medical History - Social History Smoking Status: Current Every Day Smoker Frequency of alcohol use: None Drug Abuse: None Lives with: Family, Spouse/Significant other Family History: Arthritis, Hyperlipidemia. denies: CAD, COPD, CVA, DM, Hypertension, Malignancy, Thyroid Disfunction Neurological Medical History: Reports: Hx Migraine Renal/ Medical History: Reports: Hx Ovarian Cysts. Denies: Hx Peritoneal Dialysis Skin Medical History: Reports Hx Cellulitis Past Surgical History: Reports: Hx Abdominal Surgery - Laparoscopy for an adnexal mass found to be only the fallopian tube, Hx Section, Hx Gynecologic Surgery - Ovarian cyst removed - Immunizations Immunizations up to date: Yes Hx Diphtheria, Pertussis, Tetanus Vaccination: Yes Review of Systems - Review of Systems Notes: REVIEW OF SYSTEMS: CONSTITUTIONAL : Denies recent illness. Denies recent unintentional weight loss. Denies fever, chills, or sweats. EENT: Denies eye, ear, throat, or mouth pain, discharge, or symptoms. Denies nasal or sinus congestion. CARDIOVASCULAR: Denies chest pain. RESPIRATORY: Denies shortness of breath, cough, congestion, difficulty breathing, or wheezing. GASTROINTESTINAL: See HPI GENITOURINARY: Denies difficulty urinating, burning, blood in urine, urgency or frequency. FEMALE GENITOURINARY: See HPI MUSCULOSKELETAL: Denies neck and back pain. Denies joint pain or swelling. SKIN: Denies rash, itchiness, or lesions HEMATOLOGIC : Denies easy bruising or bleeding. LYMPHATIC: Denies swollen, painful, enlarged glands. NEUROLOGICAL: Denies no numbness or tingling denies weakness. Denies headache. Denies altered mental status. Denies alteration in speech. PSYCHIATRIC: Denies stress, anxiety, alteration in sleep patterns, or depression. All other systems reviewed and negative. Physical Exam - Vital signs Vitals: Temp Pulse Resp BP Pulse Ox 97.7 F 103 H 14 120/66 97 08/13/18 04:42 08/13/18 04:42 08/13/18 04:42 08/13/18 04:42 08/13/18 04:42 - Notes Notes: PHYSICAL EXAMINATION: GENERAL: Appears well, healthy, well-nourished, no acute distress. HEAD: Normocephalic, atraumatic. EYES: PERRL, conjunctiva normal, all extraocular movements intact, sclera nonicteric ENT: Moist mucous membranes. NECK: Supple, no noticeable swelling, redness, rash. Normal range of motion. LUNGS: Equal breath sounds bilaterally and clear to auscultation. No wheezes rales or rhonchi. CARDIOVASCULAR: S1-S2, regular rate, regular rhythm. Radial pulses 2+, normal. ABDOMEN: Normoactive bowel sounds. Soft, nontender, no guarding, no rebound tenderness, and no masses palpated. EXTREMITIES: Normal strength and range of motion, no pitting or edema. No cyanosis. NEUROLOGICAL: Moves all extremities upon command. Strength 5/5 in all extremities. PSYCH: Normal mood, normal affect. SKIN: Warm, dry. No rash, lesions, ulcerations noted. Normal skin turgor. MASTER FIRE CONTROL TECHNICIAN: Mild vaginal bleeding noted. Course - Re-evaluation Re-evalutation: Due to patient's bleeding, I will send a CBC to check to see if she has had a significant drop in her hemoglobin. I will also do a pelvic exam to evaluate her cervix and the amount of bleeding she has. Her pelvic exam was normal. She did have one small clot, but there was no significant amount of bleeding from the time I first saw her until her pelvic exam. Patient is anemic, but there was not a significant drop in hemoglobin from 5 days ago. She is also not at the transfusion threshold. The patient states that she has had a bad experience with control. I asked her what her experience was and she said she had the Mirena placed and she had to have it surgically removed because it migrated. I told her that control pills were a different form of control. Since patient has not taken her control since her last visit, I suspect this is the reason why she continues to bleed. I have had an extensive conversation with her in regards to taking her control. I have educated her on the importance of taking her contr ol to help control her bleeding. She states she will take her control from the now on. Verbal discharge instructions were given to the patient. She verbalized understanding. She is stable for discharge. - Vital Signs Vital signs: Temp Pulse Resp BP Pulse Ox 97.7 F 103 H 14 120/66 97 08/13/18 04:42 08/13/18 04:42 08/13/18 04:42 08/13/18 04:42 08/13/18 04:42 - Laboratory Result Diagrams: 08/13/18 05:24 Laboratory results interpreted by me: 08/13/18 05:24 RBC 3.65 L Hgb 9.2 L Hct 28.4 L MCV 78 L MCH 25.3 L RDW 15.6 H Discharge - Discharge Clinical Impression: Vaginal bleeding, Status post primary low transverse section, Anemia, Condition: Stable Disposition: HOME, SELF-CARE Additional Instructions: You have been seen in the emergency department for vaginal discharge. Your labs are normal. Please take the control that you were prescribed by M[employer]IE ST[employer]T PERFORMER. If you do not take the control, you will continue to bleed and have cramping. Please follow-up with your MOVIE STUNT PERFORMER this week in regards to this issue. If you have been taking her control pills and continue to have bleeding, you can return to the emergency department. If you develop a fever greater than 100.4 F, or have any concerns that are worrisome to you, please return to the emergency department.
[2018-08-13 05:36] LABS: ABSOLUTE EOSINOPHILS # (AUTO) 0.2 10^3/uL (0.0-0.6); ABSOLUTE LYMPHOCYTES (AUTO) 2.9 10^3/uL (0.5-4.7); ABSOLUTE MONOCYTES (AUTO) 0.4 10^3/uL (0.1-1.4); ABSOLUTE NEUT (AUTO) 4.5 10^3/uL (1.7-8.2); BASOPHILS % (AUTO) 0.1 % (0-2); EOSINOPHILS % (AUTO) 2.6 % (0-6); HEMATOCRIT 28.4 % (36.0-47.0); HEMOGLOBIN 9.2 g/dL (12.0-15.5); LYMPHOCYTES % (AUTO) 36.7 % (13-45); MEAN CORPUSCULAR HEMOGLOBIN 25.3 pg (27.0-33.4); MEAN CORPUSCULAR HGB CONC 32.5 g/dL (32.0-36.0); MEAN CORPUSCULAR VOLUME 78 fl (80-97); PLATELET COUNT 248 10^3/uL (150-450); RED BLOOD COUNT 3.65 10^6/uL (3.72-5.28); RED CELL DISTRIBUTION WIDTH 15.6 % (11.5-14.0); SEGMENTED NEUTROPHILS % (AUTO) 55.6 % (42-78); TOTAL CELLS COUNTED % (AUTO) 100 %
[2018-08-13 07:23] LABS: CHLAM PCR NOT DETECTED (NOT DETECT); GON PCR NOT DETECTED (NOT DETECT)
== END 2018-08-13 06:20 | disposition home or self-care (01) ==
LOC: ER 04:41
DX: T38.4X6A Underdosing of oral contraceptives, initial encounter (principal); O72.2 Delayed and secondary postpartum hemorrhage; Z91.128 Patient's intentional underdosing of medication regimen for other reason; Z91.14 Patient's other noncompliance with medication regimen; O90.81 Anemia of the puerperium; O90.89 Other complications of the puerperium, not elsewhere classified; R25.2 Cramp and spasm; O99.335 Smoking (tobacco) complicating the puerperium; Z98.890 Other specified postprocedural states
CPT/HCPCS: 36415; 85025; 87491; 87591; 99284